=== PATIENT | female | born 1990 | race Caucasian/White ===

== ENCOUNTER 2016-07-15 16:53 | Emergency (ER) | payer MEDICAID ==
[2016-07-15 17:11] VITALS: BP 118/84
--- NOTE | 2016-07-15 17:46 | EDM.PDOC ---
ED HPI GENERAL MEDICAL PROBLEM - General Chief Complaint: ENT Problem Stated Complaint: RESPIRATORY ISSUES/LOSS OF VOICE Time Seen by Provider: 07/15/16 17:30 Source of Information: Reports: Patient History Limitations: Reports: No Limitations - History of Present Illness INITIAL COMMENTS - FREE TEXT/NARRATIVE: Patient is a 26-year-old female who presents to the emergency department complaining of mild sore throat, loss of her voice, cough/nonproductive, and intermittent chest tightness with coughing. States her throat is mildly sore when she coughs excessively. States the cough is changed from a productive to nonproductive cough for the past few days. Symptoms are persistent for the past 3 weeks with waxing and waning with intensity and mild improvement noted. States lost her voice 2 days ago. Patient started taking Augmentin prescription from old prescription completing a ten day course as of today. She was seen at the walk in clinic this past Monday with no testing obtained. She was instructed to continue taking the antibiotics as prescribed. Patient has mild shortness of breath with exertion. This has been stable with mild improvement daily. Patient continues to smoke one pack per day. She denies any fever/chills , chest pain, nausea/vomiting, ear pain, teeth pain, sinus discomfort, or any additional complaints. Duration: Chronic, Waxing/Waning Severity: Mild Improves with: Reports: Medication (OTC cough medication) Worsens with: Reports: Other (coughing) Context: Reports: Sick Contact (unknown) Associated Symptoms: Reports: Cough, Shortness of Breath (mild). Denies: cough w sputum, Fever/Chills Treatments CARDIOVASCULAR DISEASE SPECIALIST: Reports: Other (see below) Other Treatments CARDIOVASCULAR DISEASE SPECIALIST: OTC cough syrup Throat Pain Score (Numeric/FACES): 6 - Related Data Allergies Allergy/AdvReac Type Severity Reaction Status Date / Time No Known Allergies Allergy Verified 07/15/16 17:06 Home Meds: Home Meds Albuterol [Ventolin HFA] 8 gm INH Q4H PRN #1 inhaler 07/15/16 [Rx] Prednisone [IMW: predniSONE] 40 mg PO WITHBREAKFAST #10 tab 07/15/16 [Rx] Past Medical History - Past Health History Medical/Surgical History: Denies Medical/Surgical History - Past Surgical History HEENT Surgical History: Reports: Oral Surgery Social & Family History - Tobacco Use Smoking Status *Q: Current Every Day Smoker Years of Tobacco use: 9 Packs/Tins Daily: 1 - Caffeine Use Caffeine Use: Reports: Coffee - Recreational Drug Use Recreational Drug Use: No - Living Situation & Occupation Living situation: Reports: Single, with Family Occupation: Unemployed ED ROS ENT - Review of Systems Review Of Systems: See Below Constitutional: Denies: Fever, Chills, Malaise, Weakness, Decreased Appetite HEENT: Reports: Rhinitis, Other (mild sore throat, lost her voice). Denies: Dental Pain, Ear Pain, Sinus Problem Respiratory: Reports: Shortness of Breath (mild), Cough (nonproductive,improving ). Denies: Sputum Cardiovascular: Reports: No Symptoms GI/Abdominal: Denies: Abdominal Pain, Nausea, Vomiting Musculoskeletal: Denies: Muscle Pain Skin: Reports: No Symptoms Neurological: Reports: No Symptoms ED EXAM, ENT - Physical Exam Exam: See Below Exam Limited By: No Limitations General Appearance: Alert, WD/WN, No Apparent Distress Eye Exam: Bilateral Eye: EOMI Ears: Normal External Exam, Normal Canal, Hearing Grossly Normal, Normal TMs Nose: Normal Inspection, Normal Mucousa, No Blood Mouth/Throat: Normal Inspection, Normal Gums, Normal Lips, Normal Oropharynx, Normal Teeth Head: Atraumatic, Normocephalic Neck: Normal Inspection, Supple, Non-Tender, Full Range of Motion. No: Lymphadenopathy (L), Lymphadenopathy (R) Respiratory/Chest: No Respiratory Distress, Lungs Clear, Normal Breath Sounds, No Accessory Muscle Use, Chest Non-Tender Cardiovascular: Normal Peripheral Pulses, Regular Rate, Rhythm, No Murmur Neurological: Alert, Oriented, CN II-XII Intact, Normal Cognition Psychiatric: Normal Affect, Normal Mood Skin: Warm, Dry, Intact, Normal Color, No Rash Course - Vital Signs Last Recorded V/S: Last Vital Signs Temp 96.8 F 07/15/16 17:07 Pulse 103 H 07/15/16 17:07 Resp BP 118/84 07/15/16 17:07 Pulse Ox 100 07/15/16 17:07 - Re-Assessments/Exams Free Text/Narrative Re-Assessment/Exam: 07/15/16 17:46 Symptoms are most likely viral since it did not improve with taking the Augmentin. Patient is a chronic smoker one pack per day. This does not help with improving her current symptoms. Patient states symptoms are mildly improving daily. Will discharge patient home with a prescription for prednisone, and albuterol inhaler. Discharge instructions as documented. Departure - Departure Time of Disposition: 17:49 Disposition: Home, Self-Care 01 Condition: good Clinical Impression: Upper respiratory infection, viral - Discharge Information Prescriptions: Albuterol [Ventolin HFA] 8 gm INH Q4H PRN #1 inhaler PRN Reason: Shortness Of Breath Prednisone [IMW: predniSONE] 40 mg PO WITHBREAKFAST #10 tab Instructions: Upper Respiratory Infection, Adult, [id number] Referrals: PCP,Not In Area [Primary Care Provider] - Forms: ED Department Discharge Additional Instructions: Take the prednisone and albuterol as prescribed. Utilize flonase 1 spray each nare every a.m. until symptoms resolve. See PCP in the next week if symptoms persist. Ensure adequate rest and push the fluids. STOP SMOKING. Return to the E.D. for any new or worsening symptoms.
== END 2016-07-15 18:00 | disposition home or self-care (01) ==
LOC: JD.ED 16:53
DX: J06.9 Acute upper respiratory infection, unspecified (principal); F17.210 Nicotine dependence, cigarettes, uncomplicated
CPT/HCPCS: 99283

== ENCOUNTER 2018-11-14 09:30 | Emergency (ER) | payer MEDICAID ==
--- NOTE | 2018-11-14 10:06 | EDM.PDOC ---
<Mahin Summers - Last Filed: 11/14/18 10:00> ED HPI GENERAL MEDICAL PROBLEM - General Chief Complaint: Chest Pain Stated Complaint: CHEST PAIN Time Seen by Provider: 11/14/18 10:00 Source of Information: Reports: Patient History Limitations: Reports: No Limitations - History of Present Illness INITIAL COMMENTS - FREE TEXT/NARRATIVE: Pt presents to ED today with complaint of chest pain. Pt states that two nights ago around 1900 she had an episode of chest pain. Pt states that she was cooking dinner [place] she suddenly felt very hot and diaphoretic. Pt went outside to cool off and then had 4 episodes of a 'squeezing' sensation in the center of her chest. Pt states this sensation took her breath away. Pt states it was very intense and anxiety provoking. Her chief complaint today states that her chest feels diffusely sore. She is not having active chest pain or shortness of breath. Pt notes she is experiencing a headache behind her left eye which she attributes to sinus congestion. Pt denies any other systemic or associated symptoms at this time. Pt has history of hypertension, but is unsure of the name of her medication. Pt is an active smoker. Onset: Sudden Duration: Minutes: Location: Reports: Chest Quality: Reports: Other (Squeezing) Severity: Severe Improves with: Reports: Rest Worsens with: Reports: None Associated Symptoms: Reports: Diaphoresis, Headaches Chest Pain Score (Numeric/FACES): 2 - Related Data Allergies Allergy/AdvReac Type Severity Reaction Status Date / Time No Known Allergies Allergy Verified 11/14/18 09:43 Home Meds: Home Meds Atenolol 25 mg PO DAILY 11/14/18 [History] Past Medical History - Past Health History Medical/Surgical History: Denies Medical/Surgical History - Past Surgical History HEENT Surgical History: Reports: Oral Surgery Social & Family History - Tobacco Use Smoking Status *Q: Current Every Day Smoker Years of Tobacco use: 15 Packs/Tins Daily: 1 - Caffeine Use Caffeine Use: Reports: Coffee - Living Situation & Occupation Living situation: Reports: Single, with Family Occupation: Unemployed ED ROS GENERAL - Review of Systems Review Of Systems: ROS reveals no pertinent complaints other than HPI. ED EXAM, GENERAL - Physical Exam Exam: See Below Exam Limited By: No Limitations General Appearance: Alert, No Apparent Distress Eye Exam: Bilateral Eye: Normal Inspection Ears: Normal External Exam Nose: Normal Inspection Throat/Mouth: Normal Inspection, Normal Lips, Normal Teeth Head: Atraumatic, Normocephalic Neck: Normal Inspection Respiratory/Chest: No Respiratory Distress, Lungs Clear, Normal Breath Sounds, No Accessory Muscle Use Cardiovascular: Normal Peripheral Pulses, Regular Rate, Rhythm, No Edema, No Gallop, No JVD, No Murmur, No Rub GI/Abdominal: Normal Bowel Sounds, Soft, Non-Tender, No Organomegaly, No Distention Back Exam: Normal Inspection Extremities: Normal Inspection, Non-Tender, No Pedal Edema, Normal Capillary Refill Neurological: Alert, Oriented, CN II-XII Intact, Normal Cognition, No Motor/ Sensory Deficits Psychiatric: Normal Affect, Normal Mood Skin Exam: Warm, Dry, Intact, Normal Color Course - Vital Signs Last Recorded V/S: Last Vital Signs Temp 96.8 F 11/14/18 09:40 Pulse 70 11/14/18 11:00 Resp 19 11/14/18 11:00 BP 133/77 11/14/18 10:16 Pulse Ox 95 11/14/18 11:00 - Orders/Labs/Meds Orders: Active Orders 24 hr Category Date Time Status Cardiac Monitoring [RC] . DIRECTED Care 11/14/18 10:19 Active EKG Documentation Completion [RC] STAT Care 11/14/18 10:19 Active Chest 2V [CR] Stat Exams 11/14/18 10:19 Taken Labs: Laboratory Tests 11/14/18 11/14/18 11/14/18 Range/Units 10:29 10:29 10:29 WBC 7.76 (3.98-10.04) K/mm3 RBC 4.97 (3.98-5.22) M/mm3 Hgb 14.9 (11.2-15.7) gm/L Hct 44.8 (34.1-44.9) % MCV 90.1 (79.4-94.8) fl MCH 30.0 (25.6-32.2) pg MCHC 33.3 (32.2-35.5) g/dl RDW Std Deviation 43.8 (36.4-46.3) fL Plt Count 154 L (182-369) K/mm3 MPV 12.5 H (9.4-12.3) fl Neut % (Auto) 76.0 H (34.0-71.1) % Lymph % (Auto) 17.1 L (19.3-51.7) % [place] % (Auto) 3.6 L (4.7-12.5) % Eos % (Auto) 2.6 (0.7-5.8) Baso % (Auto) 0.4 (0.1-1.2) % Neut # (Auto) 5.90 (1.56-6.13) K/mm3 Lymph # (Auto) 1.33 (1.18-3.74) K/mm3 [place] # (Auto) 0.28 (0.24-0.36) K/mm3 Eos # (Auto) 0.20 (0.04-0.36) K/mm3 Baso # (Auto) 0.03 (0.01-0.08) K/mm3 D-Dimer, Quantitative 0.28 (0.19-0.50) mg/L Sodium 138 (136-145) mEq/L Potassium 3.9 (3.5-5.1) mEq/L Chloride 105 (98-107) mEq/L Carbon Dioxide 24 (21-32) mEq/L Anion Gap 12.9 (5-15) BUN 16 (7-18) mg/dL Creatinine 1.0 (0.55-1.02) mg/dL Est Cr Clr Drug Dosing 74.02 mL/min Estimated GFR (MDRD) > 60 (>60) mL/min BUN/Creatinine Ratio 16.0 (14-18) Glucose 96 (74-106) mg/dL Calcium 9.4 (8.5-10.1) mg/dL Total Bilirubin 0.5 (0.2-1.0) mg/dL AST 19 (15-37) U/L ALT 30 (14-59) U/L Alkaline Phosphatase 60 (46-116) U/L Troponin I < 0.017 (0.00-0.056) ng/mL Total Protein 7.7 (6.4-8.2) g/dl Albumin 4.1 (3.4-5.0) g/dl Globulin 3.6 gm/dL Albumin/Globulin Ratio 1.1 (1-2) - Re-Assessments/Exams Free Text/Narrative Re-Assessment/Exam: 11/14/18 10:16 Will order labs, D-Dimer, CXR Departure - Departure Disposition: Home, Self-Care 01 Clinical Impression: Pleurisy Referrals: Lidia Multani PA-C [Primary Care Provider] - 1 Week Forms: ED Department Discharge Additional Instructions: Take motrin or aleve for the pain. Try to stop smoking. Follow up with your doctor within a week. Please return if you are worse. - My Orders Last 24 Hours: My Active Orders 11/14/18 10:19 Cardiac Monitoring [RC] . DIRECTED EKG Documentation Completion [RC] STAT Chest 2V [CR] Stat - Assessment/Plan Last 24 Hours: My Active Orders 11/14/18 10:19 Cardiac Monitoring [RC] . DIRECTED EKG Documentation Completion [RC] STAT Chest 2V [CR] Stat <David Beal - Last Filed: 11/14/18 11:34> EKG INTERPRETATION EKG Date: 11/14/18 Time: 09:36 Rhythm: NSR Rate (Beats/Min): 90 [place]: Normal P-Wave: Present QRS: Normal ST-T: Normal QT: Normal Course - Re-Assessments/Exams Free Text/Narrative Re-Assessment/Exam: 11/14/18 11:31 I examined the patient myself and I agree with Mahin's assessment and plan. I ordered an EKG, CXR and labs. Her EKG shows a NSR with no acute changes. His CXR looks good. Her CBC and CMP look good. Her troponin is negative. Her D- dimer was negative. I feel this is some pleurisy. I will have her take an antiinflammatory and try to stop smoking. Departure - Departure Time of Disposition: 11:35 Condition: Good
[2018-11-14 11:16] VITALS: BP 133/77; PULSE 70
== END 2018-11-14 11:42 | disposition home or self-care (01) ==
LOC: JD.ED 09:30
DX: R09.1 Pleurisy (principal); F17.210 Nicotine dependence, cigarettes, uncomplicated; Z98.890 Other specified postprocedural states
CPT/HCPCS: 36415; 71046; 80053; 84484; 85025; 85379; 93005; 93010; 99283; 99285-25

== ENCOUNTER 2018-11-22 20:27 | Emergency (ER) | payer MEDICAID ==
[2018-11-22 20:42] VITALS: BP 138/84; PULSE 95
[2018-11-22] MEDS ORDERED: LORazepam 1 MG Tab PO ONE (22:44)
--- NOTE | 2018-11-22 22:44 | EDM.PDOC ---
ED HPI GENERAL MEDICAL PROBLEM - General Chief Complaint: General Stated Complaint: [facility] Time Seen by Provider: 11/22/18 22:21 Source of Information: Reports: Patient, Old Records (ED visit 11/14/2018) History Limitations: Reports: No Limitations - History of Present Illness INITIAL COMMENTS - FREE TEXT/NARRATIVE: Medical records indicate that the patient was seen in this ED on 11/14/2018 for 2 days of on and off chest pain. Workup included a CBC, CMP, troponin, D-dimer, chest x-ray, and ECG, all of which were unremarkable. The patient now returns to the ED stating that she has had chest and bilateral arm numbness, along with crampy abdominal pain and dyspnea, since around 19:45 this evening. She states that she has a cold. She also reports that she has had a left upper extremity achiness for the past 2 weeks, but has not sought medical evaluation for. She has had nausea on and off for the past 2 weeks, and watery diarrhea for the past 7 days. No recent fever, vomiting, constipation, or urinary symptoms. Here in the ED, the patient is hemodynamically stable, however, her oxygen saturation is noted to be 100% on room air. She appears to be extremely anxious. The patient acknowledges that she has a history of both anxiety and depression, but that her anxiety has been untreated for the past 2-3 years, and her depression untreated for the past 6 months. The patient states that she was found to have "tachycardia" on a Holter monitor from April of this year. The patient's PCP is SUSHANT Craven. The patient has an appointment to see Ms. Multani this coming Monday or . - Related Data Allergies Allergy/AdvReac Type Severity Reaction Status Date / Time No Known Allergies Allergy Verified 11/14/18 09:43 Home Meds: Home Meds Atenolol 25 mg PO DAILY 11/14/18 [History] Albuterol [Proventil HFA] 6.7 gm INH DAILY PRN 11/22/18 [History] Ibuprofen 800 mg PO DAILY 11/22/18 [History] Past Medical History [employer] History: Reports: Psychiatric History: Reports: Anxiety (untreated), Depression (untreated) Endocrine/Metabolic History: Reports: Obesity/BMI 30+ - Past Surgical History HEENT Surgical History: Reports: Oral Surgery (wisdom teeth extraction) Social & Family History - Tobacco Use Smoking Status *Q: Current Every Day Smoker Years of Tobacco use: 13 Packs/Tins Daily: 1.5 Packs/Tins Daily Comment: Down from 2 ppd - Caffeine Use Caffeine Use: Reports: Coffee - Alcohol Use Alcohol Use History: Yes Alcohol Use Frequency: Socially (rarely to excess) - Recreational Drug Use Recreational Drug Use: Yes Drug Use in Last 12 Months: No Recreational Drug Type: Reports: Cocaine (snorted once when 16 years old), Marijuana/Hashish (last smoked in 2016), Methamphetamine (last smoked when 18 years old), Psilocybin (Mushrooms) (last ate when 19 years old) - Living Situation & Occupation Living situation: Reports: Single, with Family (Parents, 2 kids) Occupation: Unemployed ED ROS GENERAL - Review of Systems Review Of Systems: ROS reveals no pertinent complaints other than HPI. ED EXAM, GENERAL - Physical Exam Exam: See Below Exam Limited By: No Limitations General Appearance: Alert, WD/WN, Anxious Eye Exam: Bilateral Eye: EOMI, Normal Inspection Ears: Normal External Exam, Hearing Grossly Normal Nose: Normal Inspection Throat/Mouth: Normal Inspection, Normal Lips, Normal Voice, No Airway Compromise Head: Atraumatic, Normocephalic Neck: Normal Inspection, Full Range of Motion Respiratory/Chest: No Respiratory Distress, Lungs Clear, Normal Breath Sounds, No Accessory Muscle Use Cardiovascular: Normal Peripheral Pulses, Regular Rate, Rhythm, No Gallop, No JVD, No Murmur, No Rub Peripheral Pulses: 4+: Radial (L), Radial (R) GI/Abdominal: Normal Bowel Sounds, Soft, Non-Tender, No Organomegaly, No Distention, No Abnormal Bruit, No Mass (Female) Exam: Deferred Rectal (Female) Exam: Deferred Back Exam: Normal Inspection, Full Range of Motion, NT Extremities: Normal Inspection, Normal Range of Motion, No Pedal Edema, Normal Capillary Refill Neurological: Alert, Oriented, Normal Cognition, No Motor/Sensory Deficits Psychiatric: Anxious Skin Exam: Warm, Dry, Intact, Normal Color, No Rash EKG INTERPRETATION EKG Date: 11/22/18 Time: 22:59 Rhythm: NSR Rate (Beats/Min): 87 [place]: Normal P-Wave: Enlarged (LAE) QRS: Normal ST-T: Normal QT: Normal Comparison: No Change (11/14/2018) Course - Vital Signs Last Recorded V/S: Last Vital Signs Temp 36.8 C 11/22/18 20:38 Pulse 95 11/22/18 20:38 Resp 14 11/22/18 20:38 BP 138/84 11/22/18 20:38 Pulse Ox 98 11/22/18 20:38 Orthostatic Blood Pressure [ 135/84 Standing] Orthostatic Blood Pressure [ 143/70 Supine] - Orders/Labs/Meds Labs: Laboratory Tests 11/22/18 11/22/18 11/22/18 Range/Units 22:53 22:53 23:00 WBC 10.18 H (3.98-10.04) K/mm3 RBC 4.98 (3.98-5.22) M/mm3 Hgb 15.0 (11.2-15.7) gm/dl Hct 44.4 (34.1-44.9) % MCV 89.2 (79.4-94.8) fl MCH 30.1 (25.6-32.2) pg MCHC 33.8 (32.2-35.5) g/dl RDW Std Deviation 42.7 (36.4-46.3) fL Plt Count 161 L (182-369) K/mm3 MPV 12.7 H (9.4-12.3) fl Neutrophils % (Manual) 71 H (40-60) % Band Neutrophils % 0 (0-10) % Lymphocytes % (Manual) 21 (20-40) % Atypical Lymphs % 0 % Monocytes % (Manual) 2 (2-10) % Eosinophils % (Manual) 6 H (0.7-5.8) % Basophils % (Manual) 0 L (0.1-1.2) Platelet Estimate Adequate Plt Morphology Comment RBC Morph Comment Normal D-Dimer, Quantitative (0.19-0.50) mg/L Puncture Site ABG pH (7.35-7.45) ABG pCO2 (35.0-45.0) mmHg ABG pO2 (80.0-100.0) mmHg ABG HCO3 (22.0-26.0) meq/L ABG O2 Saturation (96.0-97.0) % ABG Base Excess (-2-2.0) A-a Gradient mmHg O2 Delivery Device FiO2 (21.00-100.00) % Sodium (136-145) mEq/L Potassium (3.5-5.1) mEq/L Chloride (98-107) mEq/L Carbon Dioxide (21-32) mEq/L Anion Gap (5-15) BUN (7-18) mg/dL Creatinine (0.55-1.02) mg/dL Est Cr Clr Drug Dosing mL/min Estimated GFR (MDRD) (>60) mL/min BUN/Creatinine Ratio (14-18) Glucose (74-106) mg/dL Calcium (8.5-10.1) mg/dL Magnesium (1.8-2.4) mg/dl Total Bilirubin (0.2-1.0) mg/dL AST (15-37) U/L ALT (14-59) U/L Alkaline Phosphatase (46-116) U/L Troponin I (0.00-0.056) ng/mL Total Protein (6.4-8.2) g/dl Albumin (3.4-5.0) g/dl Globulin gm/dL Albumin/Globulin Ratio (1-2) TSH 3rd Generation (0.358-3.74) uIU/mL Urine Color Yellow (Yellow) Urine Appearance Clear (Clear) Urine pH 6.5 (5.0-8.0) Ur Specific [place] 1.015 (1.005-1.030) Urine Protein Negative (Negative) Urine Glucose (UA) Negative (Negative) Urine Ketones Negative (Negative) Urine Occult Blood Negative (Negative) Urine Nitrite Negative (Negative) Urine Bilirubin Negative (Negative) Urine Urobilinogen 0.2 (0.2-1.0) Ur Leukocyte Esterase Negative (Negative) Urine RBC 0-5 (0-5) /hpf Urine WBC 0-5 (0-5) /hpf Ur Squamous Epith Cells 0-5 (0-5) /hpf Urine Bacteria Rare (FEW) /hpf Urine Mucus Not seen (FEW) /hpf Urine HCG, Qual Negative (NEGATIVE) 11/22/18 11/22/18 11/22/18 Range/Units 23:00 23:00 23:05 WBC (3.98-10.04) K/mm3 RBC (3.98-5.22) M/mm3 Hgb (11.2-15.7) gm/dl Hct (34.1-44.9) % MCV (79.4-94.8) fl MCH (25.6-32.2) pg MCHC (32.2-35.5) g/dl RDW Std Deviation (36.4-46.3) fL Plt Count (182-369) K/mm3 MPV (9.4-12.3) fl Neutrophils % (Manual) (40-60) % Band Neutrophils % (0-10) % Lymphocytes % (Manual) (20-40) % Atypical Lymphs % % Monocytes % (Manual) (2-10) % Eosinophils % (Manual) (0.7-5.8) % Basophils % (Manual) (0.1-1.2) Platelet Estimate Plt Morphology Comment RBC Morph Comment D-Dimer, Quantitative 0.32 (0.19-0.50) mg/L Puncture Site Rt radial ABG pH 7.39 (7.35-7.45) ABG pCO2 35.9 (35.0-45.0) mmHg ABG pO2 75.0 L (80.0-100.0) mmHg ABG HCO3 21.4 L (22.0-26.0) meq/L ABG O2 Saturation 96.4 (96.0-97.0) % ABG Base Excess -2.4 L (-2-2.0) A-a Gradient 30 mmHg O2 Delivery Device Room air FiO2 21.00 (21.00-100.00) % Sodium 140 (136-145) mEq/L Potassium 3.4 L (3.5-5.1) mEq/L Chloride 105 (98-107) mEq/L Carbon Dioxide 23 (21-32) mEq/L Anion Gap 15.4 H (5-15) BUN 14 (7-18) mg/dL Creatinine 0.9 (0.55-1.02) mg/dL Est Cr Clr Drug Dosing 82.25 mL/min Estimated GFR (MDRD) > 60 (>60) mL/min BUN/Creatinine Ratio 15.6 (14-18) Glucose 104 (74-106) mg/dL Calcium 9.8 (8.5-10.1) mg/dL Magnesium 2.0 (1.8-2.4) mg/dl Total Bilirubin 0.3 (0.2-1.0) mg/dL AST 15 (15-37) U/L ALT 27 (14-59) U/L Alkaline Phosphatase 68 (46-116) U/L Troponin I < 0.017 (0.00-0.056) ng/mL Total Protein 7.8 (6.4-8.2) g/dl Albumin 4.1 (3.4-5.0) g/dl Globulin 3.7 gm/dL Albumin/Globulin Ratio 1.1 (1-2) TSH 3rd Generation 3.866 H (0.358-3.74) uIU/mL Urine Color (Yellow) Urine Appearance (Clear) Urine pH (5.0-8.0) Ur Specific [place] (1.005-1.030) Urine Protein (Negative) Urine Glucose (UA) (Negative) Urine Ketones (Negative) Urine Occult Blood (Negative) Urine Nitrite (Negative) Urine Bilirubin (Negative) Urine Urobilinogen (0.2-1.0) Ur Leukocyte Esterase (Negative) Urine RBC (0-5) /hpf Urine WBC (0-5) /hpf Ur Squamous Epith Cells (0-5) /hpf Urine Bacteria (FEW) /hpf Urine Mucus (FEW) /hpf Urine HCG, Qual (NEGATIVE) Meds: Medications Discontinued Medications Generic Name Dose Route Start Last Admin Trade Name Freq PRN Reason Stop Dose Admin Lorazepam 1 mg 11/22/18 22:44 11/22/18 23:24 Ativan PO 11/22/18 22:45 1 mg ONETIME ONE Administration - Re-Assessments/Exams Free Text/Narrative Re-Assessment/Exam: 11/22/18 22:42 The patient is extremely anxious, and it is most likely that her symptoms are due to her anxiety. I suspect that the patient would have poor insight if I simply told her that her symptoms were due to anxiety - she would not understand how some other etiology had been ruled out, therefore I have ordered an anxiety panel workup. I have ordered 1 mg of oral Ativan, but only to be given after her ABG has been drawn, and only if she has a ride home. 11/22/18 23:30 The patient is not orthostatic. 2-view chest radiograph appears to be grossly normal. The cardiac silhouette is within normal limits. No pulmonary vascular congestion. No pleural effusions. No focal infiltrate. No pneumothorax. Formal read per the Radiologist pending. 11/23/18 00:24 Test results discussed with the patient. She states that since being given the Ativan, her arms are no longer tingling. Her CBC is markable for WBC count mildly elevated at 10.18, but with 0% bandemia. Her platelets are mildly depressed 161,000. The remainder of her CBC is unremarkable. Her CMP is remarkable for a potassium slightly depressed at 3.4, but is otherwise unremarkable. Her magnesium level is within normal limits at 2.0. Her troponin is undetectably low. Her D-dimer is within normal limits at 0.32. Her TSH is mildly elevated at 3.866. Her urinalysis is unremarkable. Her urine test is negative. Her ABG is unremarkable. I explained to the patient that, while there is no test for anxiety, the patient 's symptoms are almost certainly caused by anxiety. I explained that the tests that we did today are to rule out other potential causes of her symptoms, and that all returned negative. I strongly recommended that she discuss treatment options for anxiety when she follows up with her PCP this coming Monday or . Departure - Departure Time of Disposition: 00:27 Disposition: Home, Self-Care 01 Condition: Good Clinical Impression: Anxiety - Discharge Information *PRESCRIPTION DRUG MONITORING PROGRAM REVIEWED*: Not Applicable *COPY OF PRESCRIPTION DRUG MONITORING REPORT IN PATIENT CHIDI: Not Applicable Instructions: Living With Anxiety Referrals: Lidia Multani PA-C [Primary Care Provider] - Forms: ED Department Discharge Additional Instructions: You were seen in the emergency room for left upper extremity achiness for the past 2 weeks, along with numbness to both your arms and your abdomen, and shortness of breath. Workup in the ER included blood work, an arterial blood gas, positional blood pressure checks, a urinalysis, a urine test, a chest x-ray, and an ECG. Your TSH was found to be slightly elevated at 3.866, indicating that you MAY be a little hypothyroid. Your TSH should be rechecked when you're feeling better. The remainder of your workup was unremarkable. You do not have pneumonia or a collapsed lung. You are not dehydrated. You are not anemic. No significant electrolyte abnormalities were found. You have not had a heart attack. You do not have a blood clot in your lungs. You do not have a urinary tract infection, and you are not . Based on your history, physical exam, and ER tests, the cause of your symptoms is most likely do to anxiety. Anxiety is also likely the cause of your tachycardia. We strongly recommend that you follow-up with your PCP, SUSHANT Craven, at your previously scheduled appointment this coming 11/27/2018, or , 11/29/2018, to discuss treatment options for anxiety. If any other problems, please do not hesitate to return to the ER.
--- NOTE | 2018-11-26 07:10 | CR ---
Chest: Two views of the chest were obtained. Comparison: Previous chest x-ray of 11/14/18. Heart size and mediastinum are normal. Lungs are clear. Bony structures appear within normal limits for the patient's age. Impression: 1. Nothing acute is appreciated on two-view chest x-ray. Diagnostic code #1
== END 2018-11-23 00:38 | disposition home or self-care (01) ==
LOC: JD.ED 20:27
DX: F41.9 Anxiety disorder, unspecified (principal); E66.9 Obesity, unspecified; F17.210 Nicotine dependence, cigarettes, uncomplicated; Z68.34 Body mass index [BMI] 34.0-34.9, adult; Z79.899 Other long term (current) drug therapy
CPT/HCPCS: 36415; 36600; 71046; 80053; 81001; 81025; 82803; 83735; 84443; 84484; 85007; 85027; 85379; 93005; 99285; A9270

== ENCOUNTER 2018-11-27 02:14 | Emergency (ER) | payer MEDICAID ==
[2018-11-27 02:18] VITALS: BP 131/88; PULSE 78
--- NOTE | 2018-11-27 03:22 | EDM.PDOC ---
ED HPI GENERAL MEDICAL PROBLEM - General Chief Complaint: General Stated Complaint: [facility] Time Seen by Provider: 11/27/18 02:25 Source of Information: Reports: Patient, RN Notes Reviewed History Limitations: Reports: No Limitations - History of Present Illness INITIAL COMMENTS - FREE TEXT/NARRATIVE: Ms. Summers is a very pleasant 28-year-old woman who states that she woke from sleep with bilateral hand tingling and numbness, worse on the right than the left. She soon developed a burning sensation felt all over her body, that initially began on her feet, then progressively moved upwards. She developed shortness of breath and chest pain, along with some tightness in her throat, like she couldn't swallow. All those symptoms resolved after about 1 hour. She was also experiencing palpitations, which she felt was likely due to anxiety, but she did not feel like the other symptoms were due to her usual anxiety. The patient has a history of both anxiety and depression, but stopped taking clonazepam, that she had been on for 6-12 months, 2-3 years ago and she stopped taking sertraline about 6 months ago. She was seen in this ED on 11/14/2018, and 11/22/2018 with symptoms anxiety, and workups were negative. She states that she was then seen at the walk-in clinic on 11/23/2018, and prescribed 10 tablets of Xanax 0.25 mg, as well as sertraline 25 mg per day. She states that she was also prescribed amoxicillin for an ear infection, because her provider said that her ears looked red. The patient's PCP is SUSHANT Craven. She has an appointment to see Ms. Multani this 11/28/2018. - Related Data Allergies Allergy/AdvReac Type Severity Reaction Status Date / Time No Known Allergies Allergy Verified 11/27/18 02:18 Home Meds: Home Meds Atenolol 25 mg PO DAILY 11/14/18 [History] Albuterol [Proventil HFA] 6.7 gm INH DAILY PRN 11/22/18 [History] Ibuprofen 800 mg PO DAILY 11/22/18 [History] ALPRAZolam [Xanax] 0.25 mg PO TID 11/27/18 [History] Amoxicillin 0 mg PO BID 11/27/18 [History] Past Medical History [employer] History: Reports: Psychiatric History: Reports: Anxiety, Depression Endocrine/Metabolic History: Reports: Obesity/BMI 30+ - Past Surgical History HEENT Surgical History: Reports: Oral Surgery (wisdom teeth extraction) Social & Family History - Tobacco Use Smoking Status *Q: Current Every Day Smoker Years of Tobacco use: 13 Packs/Tins Daily: 1.5 Packs/Tins Daily Comment: Down from 2 ppd - Caffeine Use Caffeine Use: Reports: Coffee - Alcohol Use Alcohol Use History: Yes Alcohol Use Frequency: Socially (rarely to excesss) - Recreational Drug Use Recreational Drug Use: Yes Drug Use in Last 12 Months: No Recreational Drug Type: Reports: Cocaine (snorted once when 16 years old), Marijuana/Hashish (last smoked 2016), Methamphetamine (last smoked when 18 years old), Psilocybin (Mushrooms) (last ate when 19 years old) - Living Situation & Occupation Living situation: Reports: Single, with Family (Parents, 2 kids) Occupation: Unemployed ED ROS GENERAL - Review of Systems Review Of Systems: ROS reveals no pertinent complaints other than HPI. ED EXAM, GENERAL - Physical Exam Exam: See Below Exam Limited By: No Limitations General Appearance: Alert, WD/WN, Anxious (tearful) Eye Exam: Bilateral Eye: EOMI, Normal Inspection Ears: Normal External Exam, Hearing Grossly Normal Nose: Normal Inspection Throat/Mouth: Normal Inspection, Normal Lips, Normal Voice, No Airway Compromise Head: Atraumatic, Normocephalic Neck: Normal Inspection, Full Range of Motion Respiratory/Chest: No Respiratory Distress, Lungs Clear, Normal Breath Sounds, No Accessory Muscle Use Cardiovascular: Normal Peripheral Pulses, Regular Rate, Rhythm, No Gallop, No JVD, No Murmur, No Rub Peripheral Pulses: 4+: Radial (L), Radial (R) GI/Abdominal: Normal Bowel Sounds, Soft, Non-Tender, No Organomegaly, No Distention, No Abnormal Bruit, No Mass (Female) Exam: Deferred Rectal (Female) Exam: Deferred Back Exam: Normal Inspection, Full Range of Motion, NT Extremities: Normal Inspection, Normal Range of Motion, No Pedal Edema, Normal Capillary Refill Neurological: Alert, Oriented, Normal Cognition, No Motor/Sensory Deficits Psychiatric: Anxious Skin Exam: Warm, Dry, Intact, Normal Color, No Rash Course - Vital Signs Last Recorded V/S: Last Vital Signs Temp 36.4 C 09/24/19 02:15 Pulse 78 11/27/18 02:15 Resp 16 11/27/18 02:15 BP 131/88 11/27/18 02:15 Pulse Ox 96 11/27/18 02:15 - Re-Assessments/Exams Free Text/Narrative Re-Assessment/Exam: 11/27/18 03:17 It is very clear that the patient is suffering from panic attacks. The patient and I talked about this at great length. She was started on Xanax and sertraline on 11/23/2018. I think it is appropriate that she continue these until she sees her PCP this coming 11/28/2018, although Xanax is not a good long-term choice for the treatment of anxiety. She was also prescribed amoxicillin for an ear infection, however, on examination, I see no evidence of an ear infection, therefore I am recommending that she discontinue the amoxicillin. After talking at length, the patient states that she feels much better, having a better understanding of the cause of her symptoms when she is having a panic attack. She declined an offer to have tests done in the ED, and is comfortable going home. Lastly, the patient reports at least a year of waking with her hands tingling and numb, worse on the right than the left. She may have carpal tunnel syndrome. I suggested that she also discuss this with her PCP when she sees her on Monday. Departure - Departure Time of Disposition: 03:21 Disposition: Home, Self-Care 01 Condition: Good Clinical Impression: Panic attack - Discharge Information *PRESCRIPTION DRUG MONITORING PROGRAM REVIEWED*: Not Applicable *COPY OF PRESCRIPTION DRUG MONITORING REPORT IN PATIENT CHIDI: Not Applicable Referrals: Lidia Multani PA-C [Ordering Only Provider] - Additional Instructions: You were seen in the emergency room after he developed the sensation of your whole body burning, chest pain or shortness of breath, headache, and palpitations. Based on your history and physical examination, you were most likely suffering from a panic attack. ER tests were offered, but declined. We recommend that you continue with Xanax on an as-needed basis for anxiety, and sertraline on a daily basis. We recommend that you discontinue the amoxicillin, as we saw no evidence that you have an ear infection. We recommend that you throw the unused pills into the trash - do not flush them down the toilet or wash them down the drain. The tingling and numbness of your hands may be due to carpal tunnel syndrome. Follow-up with your PCP, SUSHANT Craven, at your previously scheduled appointment this coming 11/28/2018, to discuss long-term treatment options for anxiety, as well as evaluation for carpal tunnel syndrome. If any other problems, please do not hesitate to return to the ER.
== END 2018-11-27 03:34 | disposition home or self-care (01) ==
LOC: JD.ED 02:14
DX: F41.0 Panic disorder [episodic paroxysmal anxiety] (principal); F32.9 Major depressive disorder, single episode, unspecified; E66.9 Obesity, unspecified; F17.210 Nicotine dependence, cigarettes, uncomplicated; Z79.899 Other long term (current) drug therapy; Z68.34 Body mass index [BMI] 34.0-34.9, adult
CPT/HCPCS: 99283

== ENCOUNTER 2018-11-27 18:13 | Emergency (ER) | payer MEDICAID ==
[2018-11-27 18:25] VITALS: BP 143/87; PULSE 102
--- NOTE | 2018-11-27 20:15 | EDM.PDOCBH ---
ED HPI GENERAL MEDICAL PROBLEM - General Chief Complaint: Behavioral/Psych Stated Complaint: MEDICATION REACTION Time Seen by Provider: 11/27/18 19:07 Source of Information: Reports: Patient History Limitations: Reports: No Limitations - History of Present Illness INITIAL COMMENTS - FREE TEXT/NARRATIVE: Ms. Summers is a very pleasant 28-year-old woman who has been seen by me in this ED on several occasions recently due to symptoms of anxiety. She was recently started on alprazolam and sertraline, but it may be a few weeks before the sertraline becomes effective. The patient now returns to the ED because she has been taking gabapentin, 900- 1800 mg QHS, on off for the past few months, for treatment of her restless leg syndrome, which she states has helped, however, the gabapentin was provided to her by a friend. The patient does not have a prescription for it. Her last dose was this past Monday or . She is concerned that the gabapentin may have caused some permanent physical brain damage. The patient saw her PCP this morning, and was prescribed additional alprazolam, and there is a plan to sequentially increase the dose of her sertraline, however , the patient did not discuss her gabapentin use with her PCP. The patient's PCP is SUSHANT Cunningham. She has an appointment to follow-up with Ms. Multani on 12/27/2018. 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: Psychiatric History: Reports: Anxiety, Depression Endocrine/Metabolic History: Reports: Obesity/BMI 30+ - Past Surgical History HEENT Surgical History: Reports: Oral Surgery (wisdom teeth extraction) Social & Family History - Tobacco Use Smoking Status *Q: Current Every Day Smoker Years of Tobacco use: 13 Packs/Tins Daily: 1.5 Packs/Tins Daily Comment: Down from 2 ppd - Caffeine Use Caffeine Use: Reports: None - Alcohol Use Alcohol Use History: Yes Alcohol Use Frequency: Socially (rarely to excess) - Recreational Drug Use Recreational Drug Use: Yes Drug Use in Last 12 Months: No Recreational Drug Type: Reports: Cocaine (snorted once when 16 years old), Marijuana/Hashish (last smoked 2015), Methamphetamine (last smoked when 18 years old), Psilocybin (Mushrooms) (last ate when 19 years old) - Living Situation & Occupation Living situation: Reports: Single, with Family (Parents, 2 kids) Occupation: Unemployed ED ROS GENERAL - Review of Systems Review Of Systems: ROS reveals no pertinent complaints other than HPI. ED EXAM, BEHAVIORAL HEALTH - Physical Exam Exam: See Below Exam Limited By: No Limitations General Appearance: Alert, WD/WN, Anxious Eye Exam: Bilateral Eye: EOMI, Normal Inspection Ears: Normal External Exam, Hearing Grossly Normal Nose: Normal Inspection Throat/Mouth: Normal Inspection, Normal Lips, Normal Voice, No Airway Compromise Head: Atraumatic, Normocephalic Neck: Normal Inspection, Full Range of Motion Respiratory/Chest: No Respiratory Distress, Lungs Clear, Normal Breath Sounds, No Accessory Muscle Use Cardiovascular: Normal Peripheral Pulses, Regular Rate, Rhythm, No Edema, No Gallop, No JVD, No Murmur, No Rub GI/Abdominal: Normal Bowel Sounds, Soft, Non-Tender, No Organomegaly, No Distention, No Abnormal Bruit, No Mass (Female) Exam: Deferred Rectal (Female) Exam: Deferred Back Exam: Normal Inspection, Full Range of Motion, NT Extremities: Normal Inspection, Normal Range of Motion, No Pedal Edema, Normal Capillary Refill Neurological: Alert, No Motor/Sensory Deficits, Oriented x 3 Psychiatric: Other (Anxious, although improved from earlier ED visits) Skin Exam: Warm, Dry, Intact, Normal color, No rash COURSE, BEHAVIORAL HEALTH COMP - Course Vital Signs: Last Vital Signs Temp 36.7 C 11/27/18 18:19 Pulse 102 H 11/27/18 18:19 Resp 14 11/27/18 18:19 BP 143/87 H 11/27/18 18:19 Pulse Ox 99 11/27/18 18:19 Medical Clearance: 11/27/18 20:04 As per the HPI, the patient is concerned that the gabapentin that she has been taking for the past few months may have caused some sort of physical brain damage. I reassured her that it has not, however, withdraw of gabapentin may be heightening her anxiety. At this time, I am recommending that she continue with the daily sertraline and as-needed Xanax. Gabapentin, or some other neuroleptic , may play a role in the future to treat her restless leg syndrome, but it is probably murdock if we treat just one problem at a time, therefore am not recommending that we start her on a neuroleptic on a regular basis at this time , however, it is something that she can discuss with Ms. Multani when she follows up in one month. Departure - Departure Time of Disposition: 20:15 Disposition: Home, Self-Care 01 Condition: Good Clinical Impression: Anxiety disorder - Discharge Information *PRESCRIPTION DRUG MONITORING PROGRAM REVIEWED*: Not Applicable *COPY OF PRESCRIPTION DRUG MONITORING REPORT IN PATIENT CHIDI: Not Applicable Instructions: Living With Anxiety Referrals: Lidia Multani PA-C [Primary Care Provider] - Forms: ED Department Discharge Additional Instructions: You were seen in the emergency room over a concern that gabapentin that you have taken over the past few months they have caused some brain damage. As discussed, while withdrawal of gabapentin may be contributing to your anxiety , it has not caused any brain damage. We recommend that you continue to take the sertraline on a daily basis, as prescribed, and Xanax up to 3 times a day, as needed for anxiety, as prescribed. We are not recommending that you start a medicine for her restless leg syndrome at this time, however, it is something that you should talk to Ms. Multani about when you follow-up with her on 12/27/2018. If any other problems, please do not hesitate to return to the ER.
== END 2018-11-27 20:35 | disposition home or self-care (01) ==
LOC: JD.ED 18:13
DX: F41.9 Anxiety disorder, unspecified (principal); F32.9 Major depressive disorder, single episode, unspecified; E66.9 Obesity, unspecified; F17.210 Nicotine dependence, cigarettes, uncomplicated; Z79.899 Other long term (current) drug therapy; Z68.34 Body mass index [BMI] 34.0-34.9, adult
CPT/HCPCS: 99283

== ENCOUNTER 2019-05-08 16:01 | Emergency (ER) | payer MEDICAID ==
[2019-05-08 16:10] VITALS: BP 145/80; PULSE 98
--- NOTE | 2019-05-08 16:35 | EDM.PDOC ---
ED HPI GENERAL MEDICAL PROBLEM - General Chief Complaint: Chest Pain Stated Complaint: CHEST PAIN Time Seen by Provider: 05/08/19 16:12 Source of Information: Reports: Patient, RN Notes Reviewed History Limitations: Reports: No Limitations - History of Present Illness INITIAL COMMENTS - FREE TEXT/NARRATIVE: Patient is a 29-year-old female who presents to the ED for evaluation of left- sided chest pain. Patient notes that she has been having chest pain on and off for around 6 months, and is usually diagnosed with anxiety, when the chest pain starts. She does note that she has a history of anxiety, and is very anxious at today's visit again. The patient states that for the past month however she has been sick with chills, congestion, and a cough. She denies any other cardiac issues or lung issues that she has. States that the pain does start in her left chest, around the third or fourth rib, radiates to her back, and also down her left arm at times. Notes it is sharp and stabbing, and intermittent in nature. Patient has not had her other symptoms evaluated, she did go to the walk-in clinic today for evaluation of her symptoms but was sent here due to the chest pain. Patient is not sure if she can be or not, states she does have an IUD but has been having unprotected sex. Patient notes that she does get some brown junk up with a cough, but is also a 1 pack-a-day smoker for multiple years. Left Chest Pain Score (Numeric/FACES): 3 - Related Data Allergies Allergy/AdvReac Type Severity Reaction Status Date / Time No Known Allergies Allergy Verified 05/08/19 16:10 Home Meds: Home Meds atenoloL [Atenolol] 25 mg PO DAILY 11/14/18 [History] Albuterol [Proventil HFA] 6.7 gm INH DAILY PRN 11/22/18 [History] Ibuprofen 800 mg PO DAILY PRN 11/22/18 [History] LORazepam [Ativan] 0.5 mg PO TID 05/08/19 [History] Past Medical History Cardiovascular History: Reports: Hypertension, Other (See Below) Other Cardiovascular History: Pt reports she has palpitations Respiratory History: Reports: Asthma 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: , 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 (See Below) Other PETROLEUM ANALYST History: IUD Neurological History: Reports: Headaches, Chronic Psychiatric History: Reports: Anxiety, Depression Endocrine/Metabolic History: Reports: Obesity/BMI 30+ Dermatologic History: Reports: Eczema, Psoriasis - Infectious Disease History Infectious Disease History: Reports: Chicken Pox - Past Surgical History HEENT Surgical History: Reports: Oral Surgery Social & Family History - Tobacco Use Smoking Status *Q: Current Every Day Smoker Years of Tobacco use: 15 Packs/Tins Daily: 1 - Caffeine Use Caffeine Use: Reports: Coffee, Soda, Tea - Recreational Drug Use Recreational Drug Use: Yes Drug Use in Last 12 Months: Yes Recreational Drug Type: Reports: Marijuana/Hashish Recreational Drug Use Frequency: Rarely - Living Situation & Occupation Living situation: Reports: Single, with Family (Parents, 2 kids) Occupation: Unemployed ED ROS GENERAL - Review of Systems Review Of Systems: See Below Constitutional: Reports: Chills, Malaise, Decreased Appetite Respiratory: Reports: Cough, Sputum. Denies: Shortness of Breath Cardiovascular: Reports: Chest Pain (L sided CP with radiation to L arm and back ). Denies: Edema, Lightheadedness GI/Abdominal: Denies: Abdominal Pain, Nausea, Vomiting Musculoskeletal: Reports: Arm Pain Psychiatric: Reports: Anxiety ED EXAM, GENERAL - Physical Exam Exam: See Below Exam Limited By: No Limitations General Appearance: Alert, WD/WN, No Apparent Distress, Anxious Eye Exam: Bilateral Eye: EOMI, Normal Inspection, PERRL Ears: Normal External Exam Nose: Normal Inspection Throat/Mouth: Normal Inspection, Normal Lips, Normal Teeth, Normal Gums, Normal Oropharynx, Normal Voice, No Airway Compromise Head: Atraumatic, Normocephalic Neck: Normal Inspection Respiratory/Chest: No Respiratory Distress, Lungs Clear, Normal Breath Sounds, No Accessory Muscle Use, Other (Left chest tender around the 3-4th rib distribution, this does re-create her pain.) Cardiovascular: Normal Peripheral Pulses, Regular Rate, Rhythm, No Edema, No Murmur Peripheral Pulses: 3+: Radial (L), Radial (R) GI/Abdominal: Normal Bowel Sounds, Soft, Non-Tender, No Distention, No Mass Extremities: Normal Inspection, Normal Capillary Refill Neurological: Alert, Oriented, Normal Cognition, No Motor/Sensory Deficits Psychiatric: Anxious (pt is tearful and scared that she has to be here d/t chest pain) Skin Exam: Warm, Dry, Intact, Normal Color, No Rash Course - Vital Signs Last Recorded V/S: Last Vital Signs Temp 97.0 F 05/08/19 16:07 Pulse 98 05/08/19 16:07 Resp 19 05/08/19 16:07 BP 145/80 H 05/08/19 16:07 Pulse Ox 99 05/08/19 16:07 - Orders/Labs/Meds Orders: Active Orders 24 hr Category Date Time Status Chest 2V [CR] Stat Exams 05/08/19 16:35 Ordered Labs: Laboratory Tests 05/08/19 05/08/19 05/08/19 Range/Units 16:45 16:45 16:45 WBC 6.88 (3.98-10.04) K/mm3 RBC 5.04 (3.98-5.22) M/mm3 Hgb 15.3 (11.2-15.7) gm/dl Hct 45.4 H (34.1-44.9) % MCV 90.1 (79.4-94.8) fl MCH 30.4 (25.6-32.2) pg MCHC 33.7 (32.2-35.5) g/dl RDW Std Deviation 42.8 (36.4-46.3) fL Plt Count 139 L (182-369) K/mm3 MPV 12.4 H (9.4-12.3) fl Neut % (Auto) 63.1 (34.0-71.1) % Lymph % (Auto) 26.6 (19.3-51.7) % [place] % (Auto) 5.7 (4.7-12.5) % Eos % (Auto) 3.9 (0.7-5.8) Baso % (Auto) 0.6 (0.1-1.2) % Neut # (Auto) 4.34 (1.56-6.13) K/mm3 Lymph # (Auto) 1.83 (1.18-3.74) K/mm3 [place] # (Auto) 0.39 H (0.24-0.36) K/mm3 Eos # (Auto) 0.27 (0.04-0.36) K/mm3 Baso # (Auto) 0.04 (0.01-0.08) K/mm3 Sodium 138 (136-145) mEq/L Potassium 4.0 (3.5-5.1) mEq/L Chloride 105 (98-107) mEq/L Carbon Dioxide 24 (21-32) mEq/L Anion Gap 13.0 (5-15) BUN 13 (7-18) mg/dL Creatinine 0.9 (0.55-1.02) mg/dL Est Cr Clr Drug Dosing 81.50 mL/min Estimated GFR (MDRD) > 60 (>60) mL/min BUN/Creatinine Ratio 14.4 (14-18) Glucose 106 (74-106) mg/dL Calcium 9.1 (8.5-10.1) mg/dL Total Bilirubin 0.5 (0.2-1.0) mg/dL AST 17 (15-37) U/L ALT 33 (14-59) U/L Alkaline Phosphatase 59 (46-116) U/L Total Protein 7.7 (6.4-8.2) g/dl Albumin 4.0 (3.4-5.0) g/dl Globulin 3.7 gm/dL Albumin/Globulin Ratio 1.1 (1-2) HCG, Qual Negative (NEGATIVE) Meds: Medications Discontinued Medications Generic Name Dose Route Start Last Admin Trade Name Freq PRN Reason Stop Dose Admin Ketorolac Tromethamine 60 mg 05/08/19 16:36 05/08/19 16:44 Toradol IM 05/08/19 16:37 60 mg ONETIME ONE Administration - Re-Assessments/Exams Free Text/Narrative Re-Assessment/Exam: 05/08/19 16:53 Patient presents to the ED for evaluation of her left-sided chest pain. I do suspect that her chest pain is due to costochondritis in nature, as her chest is tender in the third or fourth rib distribution, and is reproducible on exam. Due to her cough being present for around 1 month, with other sick-like symptoms I will order chest x-ray, CBC and CMP for further evaluation, also check hCG to make sure the patient's not before we do the chest x-ray, I did suggest giving the patient an injection of Toradol to see if this does not help her pain, and she was okay with this at this time. 05/08/19 18:31 Labs have come back unremarkable. Chest x-ray is also unremarkable, no sign of any obvious consolidation, or infiltrate. Patient will be discharged home and treated for costochondritis at this time. Departure - Departure Time of Disposition: 18:41 Disposition: Home, Self-Care 01 Condition: Fair Clinical Impression: Acute costochondritis, Anxiety - Discharge Information *PRESCRIPTION DRUG MONITORING PROGRAM REVIEWED*: No *COPY OF PRESCRIPTION DRUG MONITORING REPORT IN PATIENT CHIDI: No Instructions: Costochondritis, [id number] Referrals: Lidia Multani PA-C [Primary Care Provider] - Forms: ED Department Discharge Additional Instructions: You were evaluated in the ER for your left-sided chest pain. Your symptoms are most likely costochondritis in nature, which is an inflammation of the nerves that run along the underside of your ribs, this is due to your recent viral illness you have been fighting. Treatment of this would be 600 mg ibuprofen every 6 hours for further pain relief. Do not exceed 3200mg ibuprofen in a 24 hr time span. Recommend that you start your omeprazole again, as this will help the acid reflux/heartburn issues you have been having, and also start taking your Zoloft as previously prescribed as this will also provide you benefit from your increased anxiety that you are experiencing. Recommend you follow-up with your primary care provider in about 1 week's time to make sure your symptoms are improving. Please return to the ER at any time however if your symptoms change or worsen. Sepsis Event Note - Evaluation Sepsis Screening Result: No Definite Risk - Focused Exam Vital Signs: Vital Signs Temp Pulse Resp BP Pulse Ox 05/08/19 16:07 97.0 F 98 19 145/80 H 99 Date Exam was Performed: 05/08/19 Time Exam was Performed: 18:31 - My Orders Last 24 Hours: My Active Orders 05/08/19 16:35 Chest 2V [CR] Stat - Assessment/Plan Last 24 Hours: My Active Orders 05/08/19 16:35 Chest 2V [CR] Stat
[2019-05-08] MEDS ORDERED: Ketorolac 60 MG/2 ML SDV IM ONE (16:36)
--- NOTE | 2019-05-09 07:21 | CR ---
Chest: PA and lateral views of the chest were obtained. Comparison: Prior chest x-ray of 11/22/18. Heart size and mediastinum are normal. Lungs are clear with no acute parenchymal change. Bony structures appear within normal limits for the patient's age. Impression: 1. Nothing acute is seen on two-view chest x-ray. Diagnostic code #1 This report was dictated in [place] Standard Time
== END 2019-05-08 18:55 | disposition home or self-care (01) ==
LOC: JD.ED 16:01
DX: M94.0 Chondrocostal junction syndrome [Tietze] (principal); F41.9 Anxiety disorder, unspecified; I10 Essential (primary) hypertension; F17.210 Nicotine dependence, cigarettes, uncomplicated; Z79.899 Other long term (current) drug therapy
CPT/HCPCS: 36415; 71046; 80053; 84703; 85025; 96372; 99285; J1885; 99283

== ENCOUNTER 2019-05-27 16:24 | Emergency (ER) | payer MEDICAID ==
[2019-05-27 16:33] VITALS: BP 139/85; PULSE 90
--- NOTE | 2019-05-27 17:10 | EDM.PDOC ---
ED HPI GENERAL MEDICAL PROBLEM - General Chief Complaint: Bite:Animal, Insect Stated Complaint: DOG BITE Time Seen by Provider: 05/27/19 16:41 Source of Information: Reports: Patient, RN Notes Reviewed History Limitations: Reports: No Limitations - History of Present Illness INITIAL COMMENTS - FREE TEXT/NARRATIVE: The patient is a 29-year-old female who presents to the ED for the evaluation of a dog bite on her left side of her face. Patient states that just before coming to the ER, she was bit by a dog, that she was trying to keep from crossing of a large street in [place]. Patient states that she grabbed the dog by the collar, to try to calm it down, but the dog swung back around and ended up biting the left side of her face. Patient believes that her tetanus is up-to-date. There are some small lacerations and 1 small puncture wound to the left side of the face, along the mandible, other scrapes are noted on the neck. There is no active bleeding, and the area was cleansed with Hibiclens at time of triage. The Police Department was called and made notified of the bite. Face/Facial Pain Score (Numeric/FACES): 7 - Related Data Allergies Allergy/AdvReac Type Severity Reaction Status Date / Time [place] Allergy Shortness Uncoded 05/27/19 16:33 of Breath Home Meds: Home Meds atenoloL [Atenolol] 25 mg PO DAILY 11/14/18 [History] Albuterol [Proventil HFA] 6.7 gm INH DAILY PRN 11/22/18 [History] Ibuprofen 800 mg PO DAILY PRN 11/22/18 [History] LORazepam [Ativan] 0.5 mg PO TID 05/08/19 [History] Amoxicillin/Clavulanate K [Augmentin 875-125 MG] 1 tab PO BID #14 tablet [Rx] Sertraline HCl [Zoloft] 75 mg PO DAILY 05/27/19 [History] Past Medical History Cardiovascular History: Reports: Hypertension, Other (See Below) Other Cardiovascular History: Pt reports she has palpitations. 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: IUD Neurological History: Reports: Headaches, Chronic Psychiatric History: Reports: Anxiety, Depression Endocrine/Metabolic History: Reports: Obesity/BMI 30+ Dermatologic History: Reports: Eczema, Psoriasis - Infectious Disease History Infectious Disease History: Reports: Chicken Pox - Past Surgical History HEENT Surgical History: Reports: Oral Surgery Social & Family History - Tobacco Use Smoking Status *Q: Current Every Day Smoker Years of Tobacco use: 13 Packs/Tins Daily: 1 - Caffeine Use Caffeine Use: Reports: Coffee - Recreational Drug Use Recreational Drug Use: Yes Recreational Drug Type: Reports: Marijuana/Hashish - Living Situation & Occupation Living situation: Reports: Single, with Family (Parents, 2 kids) Occupation: Unemployed ED ROS GENERAL - Review of Systems Review Of Systems: Comprehensive ROS is negative, except as noted in HPI. ED EXAM, ANIMAL BITE - Physical Exam Exam: See Below Exam Limited By: No Limitations General Appearance: Alert, WD/WN, No Apparent Distress Eye Exam: Bilateral Eye: EOMI, Normal Inspection, PERRL Ears: Normal External Exam, Normal Canal, Hearing Grossly Normal, Normal TMs Nose: Normal Inspection Throat/Mouth: Normal Inspection, Normal Lips, Normal Teeth, Normal Gums, Normal Oropharynx, Normal Voice, No Airway Compromise Head: Normocephalic, Other (see skin assessment). No: Facial Swelling, Facial Tenderness Neck: Normal Inspection, Supple, Non-Tender, Full Range of Motion Respiratory/Chest: No Respiratory Distress, Lungs Clear, Normal Breath Sounds, No Accessory Muscle Use, Chest Non-Tender Cardiovascular: Normal Peripheral Pulses, Regular Rate, Rhythm, No Murmur Extremities: Normal Inspection, Normal Capillary Refill Neurological: Alert, Oriented, Normal Cognition, No Motor/Sensory Deficits Psychiatric: Normal Affect, Normal Mood Skin Exam: Normal Color, Warm/Dry, Other (Multiple small wounds noted to the left side of the patient's face, mostly along the mandible distribution. 1 puncture type wound that measures 3 mm in length, and other small superficial abrasions measuring 5 mm or less) Front/Back Body Diagram: 1 - area of dog bite Course - Vital Signs Last Recorded V/S: Last Vital Signs Temp 97.9 F 03/23/20 16:30 Pulse 90 05/27/19 16:30 Resp 16 05/27/19 16:30 BP 139/85 05/27/19 16:30 Pulse Ox 98 05/27/19 16:30 - Re-Assessments/Exams Free Text/Narrative Re-Assessment/Exam: 05/27/19 17:14 Patient presents to the ED for the evaluation of a dog bite on her face. All of the wounds are fairly superficial, there is 1 more of a puncture type wound as noted in physical exam. These were cleansed, and will be allowed to drain. Patient will be given general recommendations, a prescription for Augmentin, and have her follow through with police on finding the animal, to see if she needs to get the rabies series. Departure - Departure Time of Disposition: 17:07 Disposition: Home, Self-Care 01 Condition: Fair Clinical Impression: Dog bite of face Qualifiers: Encounter type: initial encounter Qualified Code(s): S01.85XA - Open bite of other part of head, initial encounter - Discharge Information *PRESCRIPTION DRUG MONITORING PROGRAM REVIEWED*: No *COPY OF PRESCRIPTION DRUG MONITORING REPORT IN PATIENT CHIDI: No Prescriptions: Amoxicillin/Clavulanate K [Augmentin 875-125 MG] 1 tab PO BID #14 tablet Instructions: Animal Bite, Adult, [id number] Referrals: Lidia Multani PA-C [Primary Care Provider] - Forms: ED Department Discharge Additional Instructions: You were evaluated in the ER today regarding the dog bite on your face. You were started on a antibiotic, Augmentin, please take 1 tab 2 times a day for the next 7 days. Please note that this antibiotic can cause diarrhea, so obtain a probiotic from the pharmacy, ask your pharmacist to recommend 1. Regarding possible rabies, keep in close contact with police/animal control to see if the animal can be found within 72 hours, and then consult with your regular provider/[facility], on whether or not you should proceed with the rabies series. At this time suspicion for rabies infection is quite low, unless proven otherwise by no vaccine records stating that the animal has had its vaccinations. The wounds will need to drain, As they are considered dirty wounds, please keep the area is cleansed with warm soapy water, you may apply topical antibiotic ointment if desired. Please return to the ER at any time if symptoms should change or worsen. Sepsis Event Note - Evaluation Sepsis Screening Result: No Definite Risk - Focused Exam Vital Signs: Vital Signs Temp Pulse Resp BP Pulse Ox 05/27/19 16:30 97.9 F 90 16 139/85 98 Date Exam was Performed: 05/27/19 Time Exam was Performed: 17:10
== END 2019-05-27 17:24 | disposition home or self-care (01) ==
LOC: JD.ED 16:24
DX: S01.85XA Open bite of other part of head, initial encounter (principal); I10 Essential (primary) hypertension; J45.909 Unspecified asthma, uncomplicated; F41.9 Anxiety disorder, unspecified; F32.9 Major depressive disorder, single episode, unspecified; E66.9 Obesity, unspecified; Z68.33 Body mass index [BMI] 33.0-33.9, adult; F17.210 Nicotine dependence, cigarettes, uncomplicated; Z91.048 Other nonmedicinal substance allergy status; Z79.899 Other long term (current) drug therapy; W54.0XXA Bitten by dog, initial encounter
CPT/HCPCS: 99283

== ENCOUNTER 2019-11-17 11:35 | Emergency (ER) | payer MEDICAID ==
--- NOTE | 2019-11-17 12:22 | EDM.PDOC ---
ED HPI GENERAL MEDICAL PROBLEM - General Chief Complaint: Abdominal Pain Stated Complaint: ABDOMINAL/BACK PAIN Time Seen by Provider: 11/17/19 12:19 Source of Information: Reports: Patient History Limitations: Reports: No Limitations - History of Present Illness INITIAL COMMENTS - FREE TEXT/NARRATIVE: 29-year-old female presents to the ED complaining of diarrhea or loose stools for the better part of a month. She will not comment or pin down how many bowel movements per day she is having but she estimates between 5 and 8. She noticed varying color some are quite dark in color. Feels a lot of rectal urgency. There is never been any bright blood per rectum. If she eats she feels food goes right through her within about 10 minutes. She has no previous abdominal surgeries Feels diffuse pressure in both lower quadrants of the abdomen and around into sides of her lower back. Feels lightheaded dizzy and weak with standing. Mild associated cramps with the diarrhea. Sometimes some chills predate the diarrhea. She has not been camping. Denies drinking from well water. Possibility of foodborne illness does exist as she eats out frequently. Onset: Gradual, Other (Symptoms for the last month or so.) Duration: Week(s):, Chronic, Constant, Getting Worse (Is getting a little worse the last few days) Location: Reports: Abdomen (Diffuse lower abdominal pain with chronic loose stools 5-8 times per day.) Quality: Reports: Ache (Across lower abdomen into both sides of her lower back) Severity: Moderate Improves with: Reports: None Worsens with: Reports: Eating (Eating makes the diarrhea and) Context: Denies: Activity, Exercise, Lifting, Sick Contact, Trauma, Other Associated Symptoms: Reports: Fever/Chills, Headaches, Loss of Appetite (Occasional chills before the diarrhea will occur.), Malaise, Nausea/Vomiting (Occasional nausea no vomiting), Weakness (Generalized sense of weakness). 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 Particular the sertraline she has been on for about a year.) Abdomen Pain Score (Numeric/FACES): 2 - Related Data Allergies Allergy/AdvReac Type Severity Reaction Status Date / Time [place] Allergy Shortness Uncoded 11/17/19 12:01 of Breath Home Meds: Home Meds atenoloL [Atenolol] 25 mg PO DAILY 11/14/18 [History] LORazepam [Ativan] 0.5 mg PO TID 05/08/19 [History] Sertraline HCl [Zoloft] 100 mg PO DAILY 05/27/19 [History] Ciprofloxacin HCl [Cipro] 500 mg PO BID #14 tablet 11/17/19 [Rx] Dicyclomine [Bentyl] 20 mg PO Q6H PRN #10 tablet 11/17/19 [Rx] metroNIDAZOLE [Flagyl] 500 mg PO Q8H #21 tab 11/17/19 [Rx] Past Medical History - Past Health History Medical/Surgical History: Denies Medical/Surgical History Cardiovascular History: Reports: Hypertension, Other (See Below) Other Cardiovascular History: Pt reports she has palpitations. 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: , Other (See Below) Other ELECTRIC LINEMAN History: IUD Musculoskeletal History: Reports: None Neurological History: Reports: Headaches, Chronic Psychiatric History: Reports: Anxiety, Depression Endocrine/Metabolic History: Reports: Obesity/BMI 30+ Hematologic History: Reports: None Immunologic History: Reports: None Oncologic (Cancer) History: Reports: None Dermatologic History: Reports: Eczema, Psoriasis - Infectious Disease History Infectious Disease History: Reports: Chicken Pox - Past Surgical History Head Surgeries/Procedures: Reports: None HEENT Surgical History: Reports: Oral Surgery Social & Family History - Tobacco Use Smoking Status *Q: Current Every Day Smoker Years of Tobacco use: 13 Packs/Tins Daily: 1 - Caffeine Use Caffeine Use: Reports: Coffee - Recreational Drug Use Recreational Drug Use: Yes Drug Use in Last 12 Months: Yes Recreational Drug Type: Reports: Marijuana/Hashish Recreational Drug Use Frequency: Rarely - Living Situation & Occupation Living situation: Reports: Single, with Family (Parents, 2 kids) Occupation: Unemployed ED ROS GENERAL - Review of Systems Review Of Systems: See Below Constitutional: Reports: Chills, Malaise, Weakness (Patient will chills before the diarrhea will occur.), Fatigue, Decreased Appetite, Weight Loss. Denies: Fever HEENT: Reports: No Symptoms Respiratory: Reports: No Symptoms Cardiovascular: Reports: Lightheadedness. Denies: Chest Pain, Blood Pressure Problem, Claudication, Dyspnea on Exertion, Orthopnea Endocrine: Reports: Fatigue GI/Abdominal: Reports: Abdominal Pain (Diffuse lower abdominal discomfort across both sides of the lower abdomen and into her), Diarrhea, Decreased Appetite ( flanks.), Mucous in Stool, Nausea. Denies: Hematemesis, Hematochezia (Chronic loose stools sometimes semi-formed no blood.), Melena : Reports: Other Musculoskeletal: Reports: Back Pain (Fuhs low back pain) Skin: Reports: No Symptoms Neurological: Reports: Dizziness, Headache, Weakness (Generalized). Denies: Confusion, Paresthesia, Pre-Existing Deficit, Seizure, Syncope, Tremors, Trouble Speaking, Difficulty Walking Psychiatric: Reports: Anxiety, Depression Hematologic/Lymphatic: Reports: No Symptoms Immunologic: Reports: No Symptoms ED EXAM, GI/ABD - Physical Exam Exam: See Below Exam Limited By: No Limitations General Appearance: Alert, WD/WN, No Apparent Distress, Other (Temperature is 36.4 with a heart rate of 64 and sinus respiratory to 16 with O2 sats of 97% room air BP 117/70.) Eyes: Bilateral: Normal Appearance (No scleral icterus or blepharal pallor.) Throat/Mouth: Normal Inspection, Normal Lips, Normal Oropharynx, Other Head: Atraumatic (Tongue is slightly dry.), Normocephalic Neck: Normal Inspection, Supple, Non-Tender, Full Range of Motion. No: Lymphadenopathy (L), Lymphadenopathy (R) Respiratory/Chest: No Respiratory Distress, Lungs Clear, Normal Breath Sounds, No Accessory Muscle Use, Chest Non-Tender Cardiovascular: Normal Peripheral Pulses, Regular Rate, Rhythm, No Edema, No Gallop, No Murmur, No Rub GI/Abdominal Exam: Normal Bowel Sounds, Soft, Non-Tender, No Organomegaly, No Abnormal Bruit, No Mass, Pelvis Stable. No: Guarding, Rigid, Rebound, Tender Back Exam: Normal Inspection, Full Range of Motion, Paraspinal Tenderness (Minimal paraspinal muscle tenderness along the). No: CVA Tenderness (L), CVA Tenderness (R) Extremities: Normal Inspection ( lumbar vertebra bilaterally.), Normal Range of Motion, Non-Tender, No Pedal Edema Neurological: Alert, Oriented, CN II-XII Intact, Normal Cognition Psychiatric: Normal Affect, Normal Mood Skin Exam: Warm, Dry, Intact, Normal Color, No Rash Course - Vital Signs Last Recorded V/S: Last Vital Signs Temp 36.4 C 11/17/19 11:58 Pulse 73 11/17/19 14:55 Resp 16 11/17/19 11:58 BP 120/70 11/17/19 14:55 Pulse Ox 97 11/17/19 11:58 - Orders/Labs/Meds Orders: Active Orders 24 hr Category Date Time Status Abdomen 1V Flat [CR] Stat Exams 11/17/19 12:33 Taken Labs: Laboratory Tests 11/17/19 11/17/19 11/17/19 Range/Units 12:45 12:50 12:50 WBC 7.80 (3.98-10.04) K/mm3 RBC 4.79 (3.98-5.22) M/mm3 Hgb 14.8 (11.2-15.7) gm/dl Hct 44.6 (34.1-44.9) % MCV 93.1 D (79.4-94.8) fl MCH 30.9 (25.6-32.2) pg MCHC 33.2 (32.2-35.5) g/dl RDW Std Deviation 44.2 (36.4-46.3) fL Plt Count 155 L (182-369) K/mm3 MPV 12.4 H (9.4-12.3) fl Neut % (Auto) 69.2 (34.0-71.1) % Lymph % (Auto) 20.5 (19.3-51.7) % Ray % (Auto) 5.8 (4.7-12.5) % Eos % (Auto) 3.8 (0.7-5.8) Baso % (Auto) 0.4 (0.1-1.2) % Neut # (Auto) 5.40 (1.56-6.13) K/mm3 Lymph # (Auto) 1.60 (1.18-3.74) K/mm3 Ray # (Auto) 0.45 H (0.24-0.36) K/mm3 Eos # (Auto) 0.30 (0.04-0.36) K/mm3 Baso # (Auto) 0.03 (0.01-0.08) K/mm3 PT (9.7-11.7) SECONDS INR APTT (22-31) SECONDS Sodium 138 (136-145) mEq/L Potassium 4.1 (3.5-5.1) mEq/L Chloride 103 (98-107) mEq/L Carbon Dioxide 24 (21-32) mEq/L Anion Gap 15.1 H (5-15) BUN 9 (7-18) mg/dL Creatinine 0.9 (0.55-1.02) mg/dL Est Cr Clr Drug Dosing 81.50 mL/min Estimated GFR (MDRD) > 60 (>60) mL/min BUN/Creatinine Ratio 10.0 L (14-18) Glucose 92 (74-106) mg/dL Calcium 8.9 (8.5-10.1) mg/dL Magnesium 2.1 (1.8-2.4) mg/dl Total Bilirubin 0.5 (0.2-1.0) mg/dL AST 29 (15-37) U/L ALT 45 (14-59) U/L Alkaline Phosphatase 45 L (46-116) U/L C-Reactive Protein 0.6 (<1.0) mg/dL Total Protein 7.6 (6.4-8.2) g/dl Albumin 4.0 (3.4-5.0) g/dl Globulin 3.6 gm/dL Albumin/Globulin Ratio 1.1 (1-2) TSH 3rd Generation 1.481 (0.358-3.74) uIU/mL Urine Color Yellow (Yellow) Urine Appearance Clear (Clear) Urine pH 6.0 (5.0-8.0) Ur Specific Council 1.015 (1.005-1.030) Urine Protein Negative (Negative) Urine Glucose (UA) Negative (Negative) Urine Ketones Negative (Negative) Urine Occult Blood Trace-intact H (Negative) Urine Nitrite Negative (Negative) Urine Bilirubin Negative (Negative) Urine Urobilinogen 0.2 (0.2-1.0) Ur Leukocyte Esterase Negative (Negative) Urine RBC 0-5 (0-5) /hpf Urine WBC 0-5 (0-5) /hpf Ur Squamous Epith Cells 0-5 (0-5) /hpf Urine Bacteria Rare (FEW) /hpf Urine Mucus Not seen (FEW) /hpf Ketones (0.0-0.3) mM 11/17/19 11/17/19 Range/Units 12:50 12:50 WBC (3.98-10.04) K/mm3 RBC (3.98-5.22) M/mm3 Hgb (11.2-15.7) gm/dl Hct (34.1-44.9) % MCV (79.4-94.8) fl MCH (25.6-32.2) pg MCHC (32.2-35.5) g/dl RDW Std Deviation (36.4-46.3) fL Plt Count (182-369) K/mm3 MPV (9.4-12.3) fl Neut % (Auto) (34.0-71.1) % Lymph % (Auto) (19.3-51.7) % Ray % (Auto) (4.7-12.5) % Eos % (Auto) (0.7-5.8) Baso % (Auto) (0.1-1.2) % Neut # (Auto) (1.56-6.13) K/mm3 Lymph # (Auto) (1.18-3.74) K/mm3 Ray # (Auto) (0.24-0.36) K/mm3 Eos # (Auto) (0.04-0.36) K/mm3 Baso # (Auto) (0.01-0.08) K/mm3 PT 11.0 (9.7-11.7) SECONDS INR 1.03 APTT 26 (22-31) SECONDS Sodium (136-145) mEq/L Potassium (3.5-5.1) mEq/L Chloride (98-107) mEq/L Carbon Dioxide (21-32) mEq/L Anion Gap (5-15) BUN (7-18) mg/dL Creatinine (0.55-1.02) mg/dL Est Cr Clr Drug Dosing mL/min Estimated GFR (MDRD) (>60) mL/min BUN/Creatinine Ratio (14-18) Glucose (74-106) mg/dL Calcium (8.5-10.1) mg/dL Magnesium (1.8-2.4) mg/dl Total Bilirubin (0.2-1.0) mg/dL AST (15-37) U/L ALT (14-59) U/L Alkaline Phosphatase (46-116) U/L C-Reactive Protein (<1.0) mg/dL Total Protein (6.4-8.2) g/dl Albumin (3.4-5.0) g/dl Globulin gm/dL Albumin/Globulin Ratio (1-2) TSH 3rd Generation (0.358-3.74) uIU/mL Urine Color (Yellow) Urine Appearance (Clear) Urine pH (5.0-8.0) Ur Specific Council (1.005-1.030) Urine Protein (Negative) Urine Glucose (UA) (Negative) Urine Ketones (Negative) Urine Occult Blood (Negative) Urine Nitrite (Negative) Urine Bilirubin (Negative) Urine Urobilinogen (0.2-1.0) Ur Leukocyte Esterase (Negative) Urine RBC (0-5) /hpf Urine WBC (0-5) /hpf Ur Squamous Epith Cells (0-5) /hpf Urine Bacteria (FEW) /hpf Urine Mucus (FEW) /hpf Ketones 0.03 (0.0-0.3) mM Meds: Medications Discontinued Medications Generic Name Dose Route Start Last Admin Trade Name Freq PRN Reason Stop Dose Admin Dextrose/Lactated Ringer's 1,000 mls @ 999 mls/hr 11/17/19 12:30 11/17/19 12:54 Dextrose 5%-Lactated Ringers IV 999 mls/hr ASDIRECTED BLANK Administration - Radiology Interpretation Free Text/Narrative:: 29-year-old female presents to the ED with a 1 month history of loose stools sometimes diarrhea sometimes semi-formed, proximately 5-8 times per day. There is intestinal hurry if she eats food usually goes through within 10 minutes. She thinks she is losing some weight. She came in today because of diffuse lower abdominal discomfort. She denies any blood per rectum. There is a possibility of foodborne illness as she eats out fairly regular. Examination is completely normal. Plan IV D5 normal saline at open. Routine labs to be collected in a stool sample if 1 becomes available. She will have 1 view of the abdomen performed. - Re-Assessments/Exams Free Text/Narrative Re-Assessment/Exam: 11/17/19 13:08 White count is normal at 7.80 with auto differential showing 69% neutrophils. Hemoglobin is 14.8 with hematocrit of 44.6. Platelet counts 155,000. 11/17/19 13:56 PT is 11.0 with an INR of 1.03. PTT is 26. Sodium 138 with a potassium of 4.1. Chloride 103 with a bicarb of 24. Anion gap is 15.1. BUN is 9 with a creatinine of 0.9. She is well-hydrated glucose is 92 with a calcium of 8.9. Magnesium is 2.1. Liver function is normal. C-reactive protein is 0.6. Total protein 7.6 with an albumin fraction of 4.0. TSH is normal at 1.48. Ketones are 0.03. KUB reveals some increased formed stool in the right hemicolon. There are diffuse nonspecific dilated loops of small bowel in the left mid abdomen. The rectal vault is empty. IUD is in appropriate position. 11/17/19 14:44 she has been unsuccessful at passing a stool while in the department. The history suggest that she may well have an organism inflaming her stomach which causes intestinal hurry and diarrhea. Is unlikely that she has ulcerative colitis or inflammatory bowel disease as he has no bloody diarrhea. Possibility of foodborne illness exist versus H. pylori infection or less likely Giardia lamblia infection. Therefore I am going to put her on antibiotics Flagyl 500 mg 3 times daily for the next week and Cipro 500 mg twice daily for 6 days. Bentyl 20 mg every 6 hours as needed for relief of abdominal cramping pain. She is to follow-up with her primary care provider in 7 to 10 days time. If not better she will require formal stool sampling for culture and a colonoscopy and possibly an upper GI endoscopy. Departure - Departure Time of Disposition: 14:47 Disposition: Home, Self-Care 01 Condition: Fair Clinical Impression: Chronic diarrhea Abdominal pain Qualifiers: Abdominal location: generalized Qualified Code(s): R10.84 - Generalized abdominal pain - Discharge Information *PRESCRIPTION DRUG MONITORING PROGRAM REVIEWED*: Not Applicable *COPY OF PRESCRIPTION DRUG MONITORING REPORT IN PATIENT CHIDI: Not Applicable Prescriptions: Dicyclomine [Bentyl] 20 mg PO Q6H PRN #10 tablet PRN Reason: Abdominal cramps/diarrhea Ciprofloxacin HCl [Cipro] 500 mg PO BID #14 tablet metroNIDAZOLE [Flagyl] 500 mg PO Q8H #21 tab Instructions: Chronic Diarrhea Referrals: Nerissa,Lidia L, PA-C [Primary Care Provider] - Forms: ED Department Discharge Additional Instructions: Evaluation in the emergency room today in regards to chronic abdominal pain for over a month with recurrent loose bowel movements or diarrhea for the last month as well. If you eat anything you develop intestinal hurry where the food seems to go right through you. Lab test did not reveal any signs of serious infection. No signs of illness with the pancreas liver kidneys etc. No signs of anemia or internal bleeding. An x-ray of the abdomen show some increased stool that is formed in the right colon but the rest of the colon is empty. The IUD is in appropriate position in your uterus in the pelvis. Since you are unable to produce a stool in the ED for sampling it is my suggestion that you try a trial of medication IV antibiotics to see if this will clear up suspect gastrointestinal infection possibly foodborne illness. Suggest use of Bentyl 20 mg tablet every 6 hours needed for relief of abdominal pain and/or cramping and it will also slow down diarrhea. Use antibiotic Flagyl 500 mg 3 times daily for the next week and Cipro 500 mg tablet twice daily for the next week to clear up foodborne illness. If you are still having problems after this then follow-up with your personal care physician is indicated to arrange for an upper GI e ndoscopy and a colonoscopy. Also stool sampling should be obtained to rule out H. pylori infection and parasitic infection such as Giardia lamblia. Sepsis Event Note (ED) - Evaluation Sepsis Screening Result: No Definite Risk - Focused Exam Vital Signs: Vital Signs Temp Pulse Resp BP Pulse Ox 11/17/19 14:55 73 120/70 11/17/19 11:58 36.4 C 64 16 117/70 97 - My Orders Last 24 Hours: My Active Orders 11/17/19 12:33 Abdomen 1V Flat [CR] Stat - Assessment/Plan Last 24 Hours: My Active Orders 11/17/19 12:33 Abdomen 1V Flat [CR] Stat
[2019-11-17] MEDS ORDERED: Dextrose 5%-Lactated Ringers 1,000 ML IV SCH (12:30)
[2019-11-17 14:56] VITALS: BP 120/70; PULSE 73
--- NOTE | 2019-11-17 19:42 | CR ---
Abdomen: Supine view of the abdomen was obtained. Comparison: No prior abdominal imaging is available. IUD is noted within the pelvis. Bowel gas pattern is normal. No soft tissue abnormality is appreciated. No abnormal calcifications are present. Bony structure shows no discrete abnormality. Impression: 1. IUD. 2. Nothing acute is appreciated on supine abdominal x-ray. Diagnostic code #2 This report was dictated in MDT
== END 2019-11-17 15:07 | disposition home or self-care (01) ==
LOC: JD.ED 11:35
DX: K52.9 Noninfective gastroenteritis and colitis, unspecified (principal); I10 Essential (primary) hypertension; J45.909 Unspecified asthma, uncomplicated; F41.9 Anxiety disorder, unspecified; F32.9 Major depressive disorder, single episode, unspecified; E66.9 Obesity, unspecified; F17.210 Nicotine dependence, cigarettes, uncomplicated; Z68.36 Body mass index [BMI] 36.0-36.9, adult; Z91.048 Other nonmedicinal substance allergy status; Z79.899 Other long term (current) drug therapy
CPT/HCPCS: 36415; 74018; 80053; 81001; 82009; 83735; 84443; 85025; 85610; 85730; 86140; 96360; 99284; J7121

== ENCOUNTER 2019-11-20 20:00 | Emergency (ER) | payer MEDICAID ==
[2019-11-20 20:17] VITALS: BP 113/63; PULSE 71
[2019-11-20] MEDS ORDERED: Ketorolac 30 MG/ML SDV IVPUSH ONE (20:30)
[2019-11-20] MEDS ORDERED: Sodium Chloride 0.9% 10 ML Syringe FLUSH PRN (20:30)
[2019-11-20] MEDS ORDERED: Metoclopramide 10 MG/2 ML SDV IVPUSH ONE (20:30)
[2019-11-20] MEDS ORDERED: Sodium Chloride 0.9% 1,000 ML IV ONE (20:30)
--- NOTE | 2019-11-20 20:36 | EDM.PDOC ---
ED HPI GENERAL MEDICAL PROBLEM - General Chief Complaint: Abdominal Pain Stated Complaint: ABDOMINAL PAIN Time Seen by Provider: 11/20/19 20:14 Source of Information: Reports: Patient, Old Records, RN Notes Reviewed History Limitations: Reports: No Limitations - History of Present Illness INITIAL COMMENTS - FREE TEXT/NARRATIVE: Patient is a 29-year-old female who presents to the ED for evaluation of her ongoing abdomen pain. Patient was evaluated this last Monday by Dr. Beltran in this ER, and was given a course of Cipro and Flagyl along with Bentyl for pain management. Patient states that the Cipro and Flagyl seem to be helping, but the Bentyl makes her "feel funny", so she only takes this when the pain is at its absolute worst. She is not taking anything else for the pain. She states that it hurts a lot to sit, stand, or lay down. She does not notice anything that really helps. She did go to the walk-in clinic today, for the ongoing pain relief, and they deferred her here for further imaging. She had labs taken, CBC is unremarkable, urinalysis is negative for infection, and her urine test was negative. Patient states she still feels mildly nauseous but has not had any vomiting. She states that her stools are formed. She has not had her period in the last 2 months. She states she is a worrier, and was concerned that she could have some sort of cancer versus other etiology for this abdomen pressure and pain. She notes that this is in her right and lower quadrant, and seems to wrap into her groin. She is not having any fevers or chills, cough/shortness of breath,, she does state however that she get some hot flashes when the pain is at its worst. Vomiting/diarrhea she has been able to eat and drink okay at this time. Left Lower Abdominal Pain Score (Numeric/FACES): 6 - Related Data Allergies Allergy/AdvReac Type Severity Reaction Status Date / Time [place] Allergy Shortness Uncoded 11/20/19 20:18 of Breath Home Meds: Home Meds atenoloL [Atenolol] 25 mg PO DAILY 11/14/18 [History] LORazepam [Ativan] 0.5 mg PO TID 05/08/19 [History] Sertraline HCl [Zoloft] 100 mg PO DAILY 05/27/19 [History] Ciprofloxacin HCl [Cipro] 500 mg PO BID #14 tablet 11/17/19 [Rx] Dicyclomine [Bentyl] 20 mg PO Q6H PRN #10 tablet 11/17/19 [Rx] metroNIDAZOLE [Flagyl] 500 mg PO Q8H #21 tab 11/17/19 [Rx] Past Medical History Cardiovascular History: Reports: Hypertension, Other (See Below) Other Cardiovascular History: Pt reports she has palpitations. 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 MOBILITY MANAGER History: IUD Neurological History: Reports: Headaches, Chronic Psychiatric History: Reports: Anxiety, Depression Endocrine/Metabolic History: Reports: Obesity/BMI 30+ Dermatologic History: Reports: Eczema, Psoriasis - Infectious Disease History Infectious Disease History: Reports: Chicken Pox - Past Surgical History HEENT Surgical History: Reports: Oral Surgery Social & Family History - Tobacco Use Smoking Status *Q: Current Every Day Smoker Years of Tobacco use: 15 Packs/Tins Daily: 1 - Caffeine Use Caffeine Use: Reports: Coffee - Living Situation & Occupation Living situation: Reports: Single, with Family (Parents, 2 kids) Occupation: Unemployed ED ROS GENERAL - Review of Systems Review Of Systems: Comprehensive ROS is negative, except as noted in HPI. ED EXAM, GI/ABD - Physical Exam Exam: See Below Exam Limited By: No Limitations General Appearance: Alert, WD/WN, No Apparent Distress Respiratory/Chest: No Respiratory Distress, Lungs Clear, Normal Breath Sounds, No Accessory Muscle Use, Chest Non-Tender Cardiovascular: Normal Peripheral Pulses, Regular Rate, Rhythm, No Murmur GI/Abdominal Exam: Normal Bowel Sounds, Soft, No Distention, No Mass, Tender (throughout entire lower abdomen.) (Female) Exam: Deferred Extremities: Normal Inspection, Normal Capillary Refill Neurological: Alert, Oriented, Normal Cognition, No Motor/Sensory Deficits Psychiatric: Normal Affect, Normal Mood Skin Exam: Warm, Dry, Intact, Normal Color, No Rash Course - Vital Signs Last Recorded V/S: Last Vital Signs Temp 97.8 F 11/20/19 20:13 Pulse 71 11/20/19 20:13 Resp 16 11/20/19 20:13 BP 113/63 11/20/19 20:13 Pulse Ox 97 11/20/19 20:13 - Orders/Labs/Meds Orders: Active Orders 24 hr Category Date Time Status Peripheral IV Insertion Adult [OM.PC] Routine Oth 11/20/19 20:29 Ordered Meds: Medications Discontinued Medications Generic Name Dose Route Start Last Admin Trade Name Freq PRN Reason Stop Dose Admin Sodium Chloride 1,000 mls @ 999 mls/hr 11/20/19 20:30 11/20/19 20:42 Normal Saline IV 11/20/19 21:30 999 mls/hr ONETIME ONE Administration Ketorolac Tromethamine 30 mg 11/20/19 20:30 11/20/19 20:41 Toradol IVPUSH 11/20/19 20:31 30 mg ONETIME ONE Administration Metoclopramide HCl 10 mg 11/20/19 20:30 11/20/19 20:40 Reglan IVPUSH 11/20/19 20:31 10 mg ONETIME ONE Administration Sodium Chloride 10 ml 11/20/19 20:30 11/20/19 20:42 Saline Flush FLUSH 10 ml ASDIRECTED PRN Administration Keep Vein Open - Re-Assessments/Exams Free Text/Narrative Re-Assessment/Exam: 11/20/19 20:35 Patient presents to the ED for ongoing abdomen pain. She had abdomen x-ray done at her last exam. We will go forward with CT at this time, will not repeat labs today, as she had them done at the [place] walk-in clinic. She had a copy of these and all are within normal limits or negative. Should be given some IV fluids, along with Reglan and Toradol for management. 11/20/19 21:03 The patient just called to the front, and states that she does go get her kids, and is leaving the emergency room. At this point in time she is leaving AMA, as she has not had her CT performed. I do not believe she has any life- threatening illnesses that are causing issues. Departure - Departure Time of Disposition: 21:03 Disposition: Against Medical Advice 07 Condition: Good Clinical Impression: Lower abdominal pain - Discharge Information Referrals: Lidia Multani PA-C [Primary Care Provider] - Forms: ED Department Discharge Sepsis Event Note (ED) - Evaluation Sepsis Screening Result: No Definite Risk - Focused Exam Vital Signs: Vital Signs Temp Pulse Resp BP Pulse Ox 11/20/19 20:13 97.8 F 71 16 113/63 97 - My Orders Last 24 Hours: My Active Orders 11/20/19 20:29 Peripheral IV Insertion Adult [OM.PC] Routine - Assessment/Plan Last 24 Hours: My Active Orders 11/20/19 20:29 Peripheral IV Insertion Adult [OM.PC] Routine
== END 2019-11-20 21:10 | disposition left against medical advice (07) ==
LOC: JD.ED 20:00
DX: R10.30 Lower abdominal pain, unspecified (principal); I10 Essential (primary) hypertension; J45.909 Unspecified asthma, uncomplicated; F41.9 Anxiety disorder, unspecified; F32.9 Major depressive disorder, single episode, unspecified; E66.9 Obesity, unspecified; F17.210 Nicotine dependence, cigarettes, uncomplicated; Z68.36 Body mass index [BMI] 36.0-36.9, adult; Z91.048 Other nonmedicinal substance allergy status; Z79.899 Other long term (current) drug therapy
CPT/HCPCS: 96374; 96375; 99283; J1885; J2765; J7030

== ENCOUNTER 2020-02-23 13:17 | Emergency (ER) | payer MEDICAID ==
[2020-02-23 13:38] VITALS: BP 124/67; PULSE 77
--- NOTE | 2020-02-23 14:09 | EDM.PDOC ---
ED HPI GENERAL MEDICAL PROBLEM - General Chief Complaint: Lower Extremity Injury/Pain Stated Complaint: L LEG PAIN Time Seen by Provider: 02/23/20 13:50 - History of Present Illness INITIAL COMMENTS - FREE TEXT/NARRATIVE: 30-year-old female sent over from the walk-in clinic for an ultrasound of her left lower extremity with concerns of a blood clot. Patient awoke this morning with some left-sided numbness and tingling and dis comfort in her left upper and lower extremity her upper extremity got better her lower extremity improved quite a bit but still is quite uncomfortable. She was seen over the walk-in clinic with his told her to come over here for an ultrasound of her leg. Patient has not had any breathing difficulties no shortness of breath no chest pain no chest discomfort. Left Leg Pain Score (Numeric/FACES): 2 - Related Data Allergies Allergy/AdvReac Type Severity Reaction Status Date / Time [place] Allergy Shortness Uncoded 02/23/20 13:38 of Breath Home Meds: Home Meds LORazepam [Ativan] 0.5 mg PO TID 05/08/19 [History] Sertraline HCl [Zoloft] 100 mg PO DAILY 05/27/19 [History] Past Medical History - Past Health History Medical/Surgical History: Denies Medical/Surgical History Cardiovascular History: Reports: Hypertension, Other (See Below) Other Cardiovascular History: Pt reports she has palpitations. 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: , Other (See Below) Other TECHNOLOGY ASSISTANT History: IUD Musculoskeletal History: Reports: None Neurological History: Reports: Headaches, Chronic Psychiatric History: Reports: Anxiety, Depression Endocrine/Metabolic History: Reports: Obesity/BMI 30+ Hematologic History: Reports: None Immunologic History: Reports: None Oncologic (Cancer) History: Reports: None Dermatologic History: Reports: Eczema, Psoriasis - Infectious Disease History Infectious Disease History: Reports: Chicken Pox - Past Surgical History Head Surgeries/Procedures: Reports: None HEENT Surgical History: Reports: Oral Surgery Social & Family History - Tobacco Use Tobacco Use Status *Q: Current Every Day Tobacco User Years of Tobacco use: 15 Packs/Tins Daily: 1 - Caffeine Use Caffeine Use: Reports: None - Recreational Drug Use Recreational Drug Use: Yes Drug Use in Last 12 Months: Yes Recreational Drug Type: Reports: Marijuana/Hashish Recreational Drug Use Frequency: Rarely - Living Situation & Occupation Living situation: Reports: Single, with Family (Parents, 2 kids) Occupation: Unemployed Review of Systems - Review of Systems Review Of Systems: See Below Constitutional: Reports: No Symptoms Respiratory: Reports: No Symptoms Cardiovascular: Reports: No Symptoms GI/Abdominal: Reports: No Symptoms Genitourinary: Reports: No Symptoms Musculoskeletal: Reports: Other (Left upper extremity discomfort has improved left lower extremity discomfort has improved some but not completely) Skin: Reports: No Symptoms Neurological: Reports: No Symptoms Psychiatric: Reports: No Symptoms ED EXAM, GENERAL - Physical Exam Exam: See Below Exam Limited By: No Limitations General Appearance: Alert, No Apparent Distress Head: Atraumatic, Normocephalic Neck: Normal Inspection, Supple, Non-Tender, Full Range of Motion Respiratory/Chest: No Respiratory Distress, Lungs Clear, Normal Breath Sounds Cardiovascular: Regular Rate, Rhythm, No Edema, No Murmur GI/Abdominal: Normal Bowel Sounds, Soft, Non-Tender Extremities: Other (Discomfort this somewhat vague in her lower leg of concern is she has some medial discomfort over the thigh worse close to the femoral triangle.) Neurological: Alert, Oriented, Normal Cognition Course - Vital Signs Last Recorded V/S: Last Vital Signs Temp 36.3 C 02/23/20 13:34 Pulse 77 02/23/20 13:34 Resp 16 02/23/20 13:34 BP 124/67 02/23/20 13:34 Pulse Ox 98 02/23/20 13:34 - Orders/Labs/Meds Orders: Active Orders 24 hr Category Date Time Status VL Duplex Lwr Ext Veins Ltd Lt [US] Stat Exams 02/23/20 14:05 Taken - Re-Assessments/Exams Free Text/Narrative Re-Assessment/Exam: 02/23/20 14:12 I am not certain what is causing her pain we will check an ultrasound as this is what is expected. 02/23/20 15:38 Ultrasound is normal of the left lower extremity. Departure - Departure Time of Disposition: 15:38 Disposition: Home, Self-Care 01 Clinical Impression: Left leg pain - Discharge Information Referrals: Lidia Multani PA-C [Primary Care Provider] - Forms: ED Department Discharge Additional Instructions: Return to the emergency room with any questions problems or worsening symptoms. Use the meloxicam you were given in the walk-in clinic or Tylenol as needed for pain. Follow-up with your regular healthcare provider this next week if needed. Sepsis Event Note (ED) - Evaluation Sepsis Screening Result: No Definite Risk - Focused Exam Vital Signs: Vital Signs Temp Pulse Resp BP Pulse Ox 02/23/20 13:34 36.3 C 77 16 124/67 98 - My Orders Last 24 Hours: My Active Orders 02/23/20 14:05 VL Duplex Lwr Ext Veins Ltd Lt [US] Stat - Assessment/Plan Last 24 Hours: My Active Orders 02/23/20 14:05 VL Duplex Lwr Ext Veins Ltd Lt [US] Stat
--- NOTE | 2020-02-24 12:26 | US ---
Left lower extremity deep venous ultrasound: Duplex and color Doppler evaluation was obtained of the left common femoral, proximal greater saphenous, superficial femoral, popliteal, posterior tibial and peroneal veins. Right common femoral vein was also evaluated. Findings: Deep veins show normal phasic flow, augmentation and compression. Impression: 1. No evidence of deep venous thrombosis within the left lower extremity or within the right common femoral vein. Diagnostic code #1
== END 2020-02-23 15:50 | disposition home or self-care (01) ==
LOC: JD.ED 13:17
DX: M79.605 Pain in left leg (principal); I10 Essential (primary) hypertension; J45.909 Unspecified asthma, uncomplicated; F41.9 Anxiety disorder, unspecified; F32.9 Major depressive disorder, single episode, unspecified; F17.210 Nicotine dependence, cigarettes, uncomplicated; E66.9 Obesity, unspecified; Z68.35 Body mass index [BMI] 35.0-35.9, adult; Z91.048 Other nonmedicinal substance allergy status; Z79.899 Other long term (current) drug therapy
CPT/HCPCS: 93971-26-LT; 93971-LT; 99284-25

== ENCOUNTER 2020-07-16 15:39 | Emergency (ER) | payer MEDICAID ==
[2020-07-16 16:18] VITALS: BP 135/94; PULSE 97
--- NOTE | 2020-07-16 17:05 | EDM.PDOC ---
ED HPI GENERAL MEDICAL PROBLEM - General Chief Complaint: ENT Problem Stated Complaint: SWOLLEN TONSILS Time Seen by Provider: 07/16/20 16:32 - History of Present Illness INITIAL COMMENTS - FREE TEXT/NARRATIVE: 30-year-old female presents the emergency room with some white debris in the right side of her throat. The patient has been on amoxicillin a 10-day course for now 9 days for significant right dental infection. This is doing much better and she is can have many of her right lower teeth removed. However she was looking in the mirror because she had a tickling sensation back there and noticed what she thought was white debris. This was between the uvula and the side of her throat on her right side. The patient otherwise has been doing quite a better on the antibiotics as the infection is clearing her teeth. - Related Data Allergies Allergy/AdvReac Type Severity Reaction Status Date / Time [place] Allergy Shortness Uncoded 02/23/20 13:38 of Breath Home Meds: Home Meds LORazepam [Ativan] 0.5 mg PO TID 05/08/19 [History] Sertraline HCl [Zoloft] 100 mg PO DAILY 05/27/19 [History] Past Medical History - Past Health History Medical/Surgical History: Denies Medical/Surgical History Cardiovascular History: Reports: Hypertension, Other (See Below) Other Cardiovascular History: Pt reports she has palpitations. 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: , Other (See Below) Other ASPHALT ROLLER OPERATOR History: IUD Musculoskeletal History: Reports: None Neurological History: Reports: Headaches, Chronic Psychiatric History: Reports: Anxiety, Depression Endocrine/Metabolic History: Reports: Obesity/BMI 30+ Hematologic History: Reports: None Immunologic History: Reports: None Oncologic (Cancer) History: Reports: None Dermatologic History: Reports: Eczema, Psoriasis - Infectious Disease History Infectious Disease History: Reports: Chicken Pox - Past Surgical History Head Surgeries/Procedures: Reports: None HEENT Surgical History: Reports: Oral Surgery Social & Family History - Tobacco Use Tobacco Use Status *Q: Current Every Day Tobacco User Years of Tobacco use: 15 Packs/Tins Daily: 1 - Caffeine Use Caffeine Use: Reports: None - Recreational Drug Use Recreational Drug Use: No - Living Situation & Occupation Living situation: Reports: Single, with Family (Parents, 2 kids) Occupation: Unemployed ED ROS ENT - Review of Systems Review Of Systems: See Below Constitutional: Reports: No Symptoms HEENT: Reports: Other (Dental pain is getting better) Respiratory: Reports: No Symptoms Cardiovascular: Reports: No Symptoms GI/Abdominal: Reports: No Symptoms ED EXAM, ENT - Physical Exam Exam: See Below Exam Limited By: No Limitations General Appearance: Alert, No Apparent Distress Mouth/Throat: Other (Minimal swelling around the right lower teeth where the infection is. Looking in the back of her throat I cannot see what she was seen. I have looked multiple times.) Head: Atraumatic, Normocephalic, Other (No facial swelling) Neck: Normal Inspection, Supple, Non-Tender, Full Range of Motion, Lymphadenopathy (R) Respiratory/Chest: No Respiratory Distress, Lungs Clear, Normal Breath Sounds Cardiovascular: Regular Rate, Rhythm, No Edema, No Murmur Course - Vital Signs Last Recorded V/S: Last Vital Signs Temp 36.6 C 07/16/20 16:15 Pulse 97 07/16/20 16:15 Resp 18 07/16/20 16:15 BP 135/94 H 07/16/20 16:15 Pulse Ox 95 07/16/20 16:15 - Re-Assessments/Exams Free Text/Narrative Re-Assessment/Exam: 07/16/20 17:03 I am unclear if the patient saw a light reflection looking in the mirror but at this time I am not seeing anything. I did discuss my findings with the patient and she is assured by this. We will discharge home at this time Departure - Departure Time of Disposition: 17:04 Disposition: Home, Self-Care 01 Clinical Impression: Throat irritation - Discharge Information Referrals: Lidia Multani PA-C [Primary Care Provider] - Additional Instructions: Return to the emergency room with any questions problems or worsening symptoms. Follow-up with your dentist as scheduled. Sepsis Event Note (ED) - Evaluation Sepsis Screening Result: No Definite Risk - Focused Exam Vital Signs: Vital Signs Temp Pulse Resp BP Pulse Ox 07/16/20 16:15 36.6 C 97 18 135/94 H 95
== END 2020-07-16 17:09 | disposition home or self-care (01) ==
LOC: JD.ED 15:39
DX: R09.89 Other specified symptoms and signs involving the circulatory and respiratory systems (principal); J45.909 Unspecified asthma, uncomplicated; I10 Essential (primary) hypertension; E66.9 Obesity, unspecified; Z68.41 Body mass index [BMI] 40.0-44.9, adult; Z91.018 Allergy to other foods; Z91.048 Other nonmedicinal substance allergy status; Z79.899 Other long term (current) drug therapy; Z72.0 Tobacco use
CPT/HCPCS: 99282; 99283

== ENCOUNTER 2020-09-19 17:56 | Emergency (ER) | payer MEDICAID ==
[2020-09-19 18:39] VITALS: BP 123/74; PULSE 78
--- NOTE | 2020-09-19 19:21 | EDM.PDOC ---
ED HPI GENERAL MEDICAL PROBLEM - General Chief Complaint: Skin Complaint Stated Complaint: SKIN COMPLAINT/NOSE Time Seen by Provider: 09/19/20 18:42 Source of Information: Reports: Patient, RN Notes Reviewed History Limitations: Reports: No Limitations - History of Present Illness INITIAL COMMENTS - FREE TEXT/NARRATIVE: Pt is a 30 year old female presenting to ER with c/o right nare pain and concerns of a possibly infected septum piercing. She reports that she got her septum pierced 3 days ago at a tattoo parlor. The area has been getting progressively more swollen and painful. reports pain radiating up her right nare and to her right upper lip. Denies fever, chills, nausea, or vomiting. She would like the piercing removed. Nare Pain Score (Numeric/FACES): 7 - Related Data Allergies Allergy/AdvReac Type Severity Reaction Status Date / Time [place] Allergy Shortness Uncoded 02/23/20 13:38 of Breath Home Meds: Home Meds LORazepam [Ativan] 0.5 mg PO TID 05/08/19 [History] Sertraline HCl [Zoloft] 100 mg PO DAILY 05/27/19 [History] Doxycycline [Vibra-Tabs] 100 mg PO Q12HR 5 Days #10 tab 09/19/20 [Rx] Past Medical History - Past Health History Medical/Surgical History: Denies Medical/Surgical History Cardiovascular History: Reports: Hypertension, Other (See Below) Other Cardiovascular History: Pt reports she has palpitations. 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 (See Below) Other ROPING MACHINE TENDER History: IUD Musculoskeletal History: Reports: None Neurological History: Reports: Headaches, Chronic Psychiatric History: Reports: Anxiety, Depression Endocrine/Metabolic History: Reports: Obesity/BMI 30+ Hematologic History: Reports: None Immunologic History: Reports: None Oncologic (Cancer) History: Reports: None Dermatologic History: Reports: Eczema, Psoriasis - Infectious Disease History Infectious Disease History: Reports: Chicken Pox - Past Surgical History Head Surgeries/Procedures: Reports: None HEENT Surgical History: Reports: Oral Surgery Social & Family History - Tobacco Use Tobacco Use Status *Q: Current Every Day Tobacco User Years of Tobacco use: 14 Packs/Tins Daily: 1 - Caffeine Use Caffeine Use: Reports: Coffee - Recreational Drug Use Recreational Drug Use: No - Living Situation & Occupation Living situation: Reports: Single, with Family (Parents, 2 kids) Occupation: Unemployed ED ROS GENERAL - Review of Systems Review Of Systems: Comprehensive ROS is negative, except as noted in HPI. ED EXAM, SKIN/RASH Exam: See Below Exam Limited By: No Limitations General Appearance: Alert, Mild Distress Nose: Other (circular barbell peircing of the septum. Redness and edema to the peircing site in the right nare. Tenderness throughout the right nare and of the peircing site. ) Course - Vital Signs Last Recorded V/S: Last Vital Signs Temp 97.3 F 09/19/20 18:38 Pulse 78 09/19/20 18:38 Resp 20 09/19/20 18:38 BP 123/74 09/19/20 18:38 Pulse Ox 98 09/19/20 18:38 - Re-Assessments/Exams Free Text/Narrative Re-Assessment/Exam: Patient is a 30-year-old female presenting to the ER with concerns of pain and questionable infection to a new septum piercing. On exam, there is some mild redness and edema in the right nare at the site of the piercing. Tenderness of the area as well. Piercing was able to be easily removed after unscrewing the ball of the barbell. Patient will be placed on doxycycline for treatment of possible infection. Discharge instructions as documented. Departure - Departure Time of Disposition: 19:21 Disposition: Home, Self-Care 01 Condition: Good Clinical Impression: Inflammation associated with voluntary body piercing - Discharge Information *PRESCRIPTION DRUG MONITORING PROGRAM REVIEWED*: No *COPY OF PRESCRIPTION DRUG MONITORING REPORT IN PATIENT CHIDI: No Prescriptions: Doxycycline [Vibra-Tabs] 100 mg PO Q12HR 5 Days #10 tab Referrals: Lidia Multani PA-C [Primary Care Provider] - Additional Instructions: You were seen in the emergency department today for pain and swelling to your newly pierced septum. Your septum piercing was removed. Area is inflamed which may be signs of early infection. You were started on doxycycline for treatment of infection. Take this medication as prescribed. Use Tylenol or ibuprofen as needed for discomfort. Return to ER for any new or worsening symptoms. Sepsis Event Note (ED) - Evaluation Sepsis Screening Result: No Definite Risk - Focused Exam Vital Signs: Vital Signs Temp Pulse Resp BP Pulse Ox 09/19/20 18:38 97.3 F 78 20 123/74 98
== END 2020-09-19 19:45 | disposition home or self-care (01) ==
LOC: JD.ED 17:56
DX: T17.1XXA Foreign body in nostril, initial encounter (principal); I10 Essential (primary) hypertension; Z91.09 Other allergy status, other than to drugs and biological substances; Z72.0 Tobacco use
CPT/HCPCS: 99283

== ENCOUNTER 2020-09-24 21:07 | Emergency (ER) | payer MEDICAID ==
[2020-09-24 21:18] VITALS: BP 120/71; PULSE 79
--- NOTE | 2020-09-24 21:27 | EDM.PDOC ---
ED HPI GENERAL MEDICAL PROBLEM - General Chief Complaint: ENT Problem Stated Complaint: DENTAL PROBLEMS ON RIGHT SIDE OF FACE/PAIN & SWELL Time Seen by Provider: 09/24/20 21:23 Source of Information: Reports: Patient History Limitations: Reports: No Limitations - History of Present Illness INITIAL COMMENTS - FREE TEXT/NARRATIVE: 30-year-old female presents to the ED with dental pain originating from right lower teeth at this time. She states she was to the dentist yesterday and had x-rays done but apparently no infection was identified. She was on doxycycline for an infected nose ring but became sensitized to the medication and was discontinued prior to get completing her therapy. She has been off antibiotic for about a week. She states that since that time she has developed gradually worsening pain in the right lower second bicuspid tooth. Her right lower first and second teeth have been temporarily crown. Pain is currently rating down her posterior right lateral pharynx and along the mandible and right neck. Onset: Gradual Onset Date: 09/22/20 (Problems with right lower teeth worsening over the last 48 hours.) Duration: Day(s): (2 days), Getting Worse Location: Reports: Face (Dental pain) Quality: Reports: Ache, Throbbing, Other Severity: Severe (All saline) Improves with: Reports: None ( 910) Worsens with: Reports: Other (Even breathing deeply on the right side causes pain in her teeth.) Context: Denies: Activity ( Cannot eat or chew on that side at all.), Exercise, Lifting, Sick Contact, Trauma, Other Associated Symptoms: Reports: Loss of Appetite, Malaise. 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, NSAIDS (Motrin as needed) Right Lower Oral/Mouth Pain Score (Numeric/FACES): 5 - Related Data Allergies Allergy/AdvReac Type Severity Reaction Status Date / Time doxycycline AdvReac Severe Chest Verified 09/24/20 21:18 [place]sure [place] Allergy Severe Shortness Uncoded 09/24/20 21:18 of Breath Home Meds: Home Meds LORazepam [Ativan] 0.5 mg PO TID 05/08/19 [History] Acetaminophen [Tylenol Extra Strength] 500 mg PO DAILY PRN 09/24/20 [History] Amoxicillin/Clavulanate K [Augmentin 500-125 MG] 1 tab PO BID #20 tablet 09/24/20 [Rx] oxyCODONE HCl/Acetaminophen [Percocet 5-325 mg Tablet] 1 - 2 each PO Q4H PRN #15 tablet 09/24/20 [Rx] Past Medical History - Past Health History Medical/Surgical History: Denies Medical/Surgical History HEENT History: Reports: Other (See Below) Other HEENT History: Dental Caries, Upper Dentures Cardiovascular History: Reports: Hypertension, Other (See Below) Other Cardiovascular History: Pt reports she has palpitations. Respiratory History: Reports: Asthma Gastrointestinal History: Reports: Other (See Below) Other Gastrointestinal History: Stomach Ulcers Genitourinary History: Reports: None MANAGER MARKET History: Reports: , Other (See Below) Other MANAGER MARKET History: IUD Musculoskeletal History: Reports: None Neurological History: Reports: Headaches, Chronic Psychiatric History: Reports: Anxiety, Depression Endocrine/Metabolic History: Reports: Obesity/BMI 30+ Hematologic History: Reports: None Immunologic History: Reports: None Oncologic (Cancer) History: Reports: None Dermatologic History: Reports: Eczema, Psoriasis - Infectious Disease History Infectious Disease History: Reports: Chicken Pox - Past Surgical History HEENT Surgical History: Reports: Oral Surgery Social & Family History - Tobacco Use Tobacco Use Status *Q: Current Every Day Tobacco User Years of Tobacco use: 15 Packs/Tins Daily: 1 - Caffeine Use Caffeine Use: Reports: Coffee - Recreational Drug Use Recreational Drug Use: Yes Recreational Drug Type: Reports: Marijuana/Hashish - Living Situation & Occupation Living situation: Reports: Single, with Family (Parents, 2 kids) Occupation: Unemployed ED ROS ENT - Review of Systems Review Of Systems: See Below Constitutional: Reports: Fatigue, Decreased Appetite (From not sleeping well.). Denies: Fever, Chills, Malaise, Weakness HEENT: Reports: Dental Pain (Lower dental pain she is able to localize it to her right 2nd lower bicuspid tooth which is badly decayed) Respiratory: Reports: No Symptoms Cardiovascular: Reports: No Symptoms Endocrine: Reports: No Symptoms GI/Abdominal: Reports: No Symptoms : Reports: No Symptoms Musculoskeletal: Reports: No Symptoms Skin: Reports: No Symptoms Neurological: Reports: No Symptoms Psychiatric: Reports: Anxiety Hematologic/Lymphatic: Reports: No Symptoms ED EXAM, ENT - Physical Exam Exam: See Below Exam Limited By: No Limitations General Appearance: Alert, WD/WN, Mild Distress, Other (Temperature is 36.0. Heart rate 79 and sinus. Respiratory 16. O2 sats 100% room air BP 03/25/1970) Eye Exam: Bilateral Eye: Normal Inspection (No blepharal pallor or scleral icterus.), PERRL Mouth/Throat: Dental Pain (Your dental pain coming from the right lower 2nd bicuspid tooth which is nearly split in half due to dental caries with exposure of the dentin almost down to the root of the tooth. I the surrounding gingiva around the tooth is decayed away from the tooth as well. The 1st lower bicuspid tooth is al), Dental Tenderness (Right lower 2nd bicuspid tooth which is severely decayed.), Other (Complains of some tongue pain and has a very small pustule in irritant of the right anterior tongue.) Head: Atraumatic ( Posterior oropharynx is normal.), Normocephalic Neck: Normal Inspection, Supple, Non-Tender, Full Range of Motion, Other (Patient has no sick significant anterior posterior chain adenopathy or swelling etc.). No: Lymphadenopathy (L), Lymphadenopathy (R) Respiratory/Chest: No Respiratory Distress, Lungs Clear, Normal Breath Sounds, Chest Non-Tender Cardiovascular: Normal Peripheral Pulses, Regular Rate, Rhythm, No Edema, No Gallop, No Murmur, No Rub Course - Vital Signs Last Recorded V/S: Last Vital Signs Temp 36.0 C L 09/24/20 21:16 Pulse 79 09/24/20 21:16 Resp 16 09/24/20 21:16 BP 120/71 09/24/20 21:16 Pulse Ox 100 09/24/20 21:16 - Radiology Interpretation Free Text/Narrative:: 30-year-old female presents to the ED with dental abscess with badly decayed right lower 2nd bicuspid tooth. Half of the tooth is missing. The buccal gingiva margin is also missing with exposure of the lower portion of the tooth and presumably the root. Plan she will be placed on Augmentin 500/1 2 5 mg strength twice daily for the next 10 days to clear up infection. Percocet tabs 5 325 mg strength 1 or 2 every 4-6 hours with Motrin 600 mg every 6 hours for pain relief. 14 tablets of Percocet provided. She did see her dentist yesterday but will plan to follow-up with her again early next week. Departure - Departure Time of Disposition: 21:23 Disposition: Home, Self-Care 01 Condition: Fair Clinical Impression: Infected dental caries - Discharge Information *PRESCRIPTION DRUG MONITORING PROGRAM REVIEWED*: No *COPY OF PRESCRIPTION DRUG MONITORING REPORT IN PATIENT CHIDI: No Prescriptions: Amoxicillin/Clavulanate K [Augmentin 500-125 MG] 1 tab PO BID #20 tablet oxyCODONE HCl/Acetaminophen [Percocet 5-325 mg Tablet] 1 - 2 each PO Q4H PRN #15 tablet PRN Reason: pain relief. Instructions: Dental Abscess, [id number] Referrals: Lidia Multani PA-C [Primary Care Provider] - Forms: ED Department Discharge Additional Instructions: Evaluation in the emergency room today in regards to gradually worsening dental pain coming from right second lower bicuspid tooth which is badly decayed down to the root of the tooth below the gingiva margin. Associated infection of the surrounding gums or gingiva as well. Treatment to be Augmentin 500/125 mg tablet twice daily for the next 10 days to clear up dental infection. Continue Motrin 600 mg every 6 hours to relieve pain and inflammation. Percocet tabs 5/325 mg strength 1 tablet every 4-6 hours necessary for pain relief in addition to the Motrin. Follow-up with dentist as planned. Sepsis Event Note (ED) - Evaluation Sepsis Screening Result: No Definite Risk - Focused Exam Vital Signs: Vital Signs Temp Pulse Resp BP Pulse Ox 09/24/20 21:16 36.0 C L 79 16 120/71 100
== END 2020-09-24 21:35 | disposition home or self-care (01) ==
LOC: JD.ED 21:07
DX: K04.7 Periapical abscess without sinus (principal); K02.9 Dental caries, unspecified; I10 Essential (primary) hypertension; J45.909 Unspecified asthma, uncomplicated; E66.9 Obesity, unspecified; Z68.37 Body mass index [BMI] 37.0-37.9, adult; Z72.0 Tobacco use; Z88.1 Allergy status to other antibiotic agents; Z91.048 Other nonmedicinal substance allergy status; Z79.899 Other long term (current) drug therapy
CPT/HCPCS: 99282; 99283

== ENCOUNTER 2020-11-30 07:41 | Emergency (ER) | payer MEDICAID ==
[2020-11-30 07:53] VITALS: BP 136/95; PULSE 102
[2020-11-30] MEDS ORDERED: cefTRIAXone 1 GM, Lidocaine 1% 2.1 ML IM ONE ×2 (07:57)
--- NOTE | 2020-11-30 08:10 | EDM.PDOC ---
ED HPI GENERAL MEDICAL PROBLEM - General Chief Complaint: ENT Problem Stated Complaint: DENTAL COMPLAINT Time Seen by Provider: 11/30/20 07:57 Source of Information: Reports: Patient History Limitations: Reports: No Limitations - History of Present Illness INITIAL COMMENTS - FREE TEXT/NARRATIVE: The patient presents with right lower jaw pain. This started on Monday. She was seen at the walk in clinic on Monday and started on Augmentin. She said the pain was worse today and there is more swelling. She does have known periodontal disease. She goes to [facility] for her dental care. She just lost her brother last week and she is wondering if this is from her grinding her teeth. Onset: Gradual Duration: Day(s): Location: Reports: Other (right lower jaw) Quality: Reports: Sharp Severity: Severe Improves with: Reports: None Worsens with: Reports: None Associated Symptoms: Reports: No Other Symptoms Right Face/Facial Pain Score (Numeric/FACES): 10 - Related Data Allergies Allergy/AdvReac Type Severity Reaction Status Date / Time doxycycline AdvReac Severe Chest Verified 11/30/20 07:53 Presssure [place] Allergy Severe Shortness Uncoded 09/24/20 21:18 of Breath Home Meds: Home Meds LORazepam [Ativan] 0.5 mg PO TID 05/08/19 [History] Acetaminophen [Tylenol Extra Strength] 500 mg PO DAILY PRN 09/24/20 [History] Amoxicillin/Clavulanate K [Augmentin 500-125 MG] 1 tab PO BID #20 tablet 09/24/20 [Rx] oxyCODONE HCl/Acetaminophen [Percocet 5-325 mg Tablet] 1 - 2 each PO Q4H PRN #15 tablet 09/24/20 [Rx] Hydrocodone/Acetaminophen [Hydrocodone-Acetamin 5-325 mg] 1 - 2 each PO Q6H PRN #20 tablet 11/30/20 [Rx] Past Medical History - Past Health History Medical/Surgical History: Denies Medical/Surgical History HEENT History: Reports: Other (See Below) Other HEENT History: Dental Caries, Upper Dentures Cardiovascular History: Reports: Hypertension, Other (See Below) Other Cardiovascular History: Pt reports she has palpitations. Respiratory History: Reports: Asthma Gastrointestinal History: Reports: Other (See Below) Other Gastrointestinal History: Stomach Ulcers Genitourinary History: Reports: None GARAGE HAND History: Reports: , Other (See Below) Other GARAGE HAND History: IUD Musculoskeletal History: Reports: None Neurological History: Reports: Headaches, Chronic Psychiatric History: Reports: Anxiety, Depression Endocrine/Metabolic History: Reports: Obesity/BMI 30+ Hematologic History: Reports: None Immunologic History: Reports: None Oncologic (Cancer) History: Reports: None Dermatologic History: Reports: Eczema, Psoriasis - Infectious Disease History Infectious Disease History: Reports: Chicken Pox - Past Surgical History HEENT Surgical History: Reports: Oral Surgery Social & Family History - Caffeine Use Caffeine Use: Reports: Coffee - Living Situation & Occupation Living situation: Reports: Single, with Family (Parents, 2 kids) Occupation: Unemployed ED ROS ENT - Review of Systems Review Of Systems: See Below Constitutional: Reports: No Symptoms HEENT: Reports: Dental Pain Respiratory: Reports: No Symptoms Cardiovascular: Reports: No Symptoms Endocrine: Reports: No Symptoms GI/Abdominal: Reports: No Symptoms : Reports: No Symptoms Musculoskeletal: Reports: No Symptoms ED EXAM, ENT - Physical Exam Exam: See Below Exam Limited By: No Limitations General Appearance: Alert, No Apparent Distress Ears: Normal External Exam Nose: Normal Inspection Mouth/Throat: Other (Erythema and edema to the right lower jaw gum line. Mild edema noted to her right jaw.) Head: Atraumatic, Normocephalic Neck: Normal Inspection, Supple, Non-Tender, Full Range of Motion Respiratory/Chest: No Respiratory Distress Course - Vital Signs Last Recorded V/S: Last Vital Signs Temp 98.2 F 11/30/20 07:50 Pulse 102 H 11/30/20 07:50 Resp 18 11/30/20 07:50 BP 136/95 H 11/30/20 07:50 Pulse Ox 97 11/30/20 07:50 - Orders/Labs/Meds Meds: Medications Discontinued Medications Generic Name Dose Route Start Last Admin Trade Name Freq PRN Reason Stop Dose Admin Ceftriaxone Sodium 1 gm/ 0 gm 11/30/20 07:57 Lidocaine HCl 2.1 ml IM 11/30/20 07:58 ONETIME ONE - Re-Assessments/Exams Free Text/Narrative Re-Assessment/Exam: 11/30/20 08:16 I will give her a shot of rocephin and have he continue the augmentin. I will also give her some hydrocodone for pain and have her follow up with [facility]. Departure - Departure Time of Disposition: 08:20 Disposition: Home, Self-Care 01 Condition: Good Clinical Impression: Pain, dental, Dental infection - Discharge Information *PRESCRIPTION DRUG MONITORING PROGRAM REVIEWED*: Not Applicable *COPY OF PRESCRIPTION DRUG MONITORING REPORT IN PATIENT CHIDI: Not Applicable Prescriptions: Hydrocodone/Acetaminophen [Hydrocodone-Acetamin 5-325 mg] 1 - 2 each PO Q6H PRN #20 tablet PRN Reason: Pain Referrals: Lidia Multani PA-C [Primary Care Provider] - 1 Week Forms: ED Department Discharge Additional Instructions: Keep taking he augmentin as prescribed. Put warm compresses on your jaw for 15 minutes 3 times per day for 3 to 5 days. Take tylenol or motrin as needed for pain. If that does not help, try the hydrocodone. Follow up with your dentist. Please return if you are worse. Sepsis Event Note (ED) - Evaluation Sepsis Screening Result: No Definite Risk - Focused Exam Vital Signs: Vital Signs Temp Pulse Resp BP Pulse Ox 11/30/20 07:50 98.2 F 102 H 18 136/95 H 97
== END 2020-11-30 08:35 | disposition home or self-care (01) ==
LOC: JD.ED 07:41
DX: K04.7 Periapical abscess without sinus (principal); I10 Essential (primary) hypertension; J45.909 Unspecified asthma, uncomplicated; E66.9 Obesity, unspecified; Z68.30 Body mass index [BMI] 30.0-30.9, adult; Z88.1 Allergy status to other antibiotic agents; Z91.09 Other allergy status, other than to drugs and biological substances
CPT/HCPCS: 96372; 99282; J0696

== ENCOUNTER 2020-12-24 18:46 | Emergency (ER) | payer MEDICAID ==
--- NOTE | 2020-12-24 19:34 | EDM.PDOC ---
ED HPI GENERAL MEDICAL PROBLEM - General Chief Complaint: General Stated Complaint: LEFT SIDE OF FACE SWOLLEN/LEFT LEG PAIN Time Seen by Provider: 12/24/20 18:57 Source of Information: Reports: Patient History Limitations: Reports: No Limitations - History of Present Illness INITIAL COMMENTS - FREE TEXT/NARRATIVE: Ms. Summers is a pleasant 30-year-old woman who now presents to the ED stating that she has had left upper and lower extremity fatigue/heaviness, tingling and numbness for about 2 years, intermittent left eye blurriness for about 1.5 years, left lower extremity pain for about 2 weeks, and left facial swelling, without dental pain, for about 1 week. The patient states that she saw her PCP about a year ago for her left upper and left lower extremity symptoms, and was told that her symptoms might be because of the way she carries herself. She saw an Valve Inserter on 03/08/2020, and was told that she had increased pressure in her left eye, but that she does not have glaucoma. She states that she was instructed to follow-up with her PCP for further evaluation. With respect to the patient's left lower extremity discomfort, she states that she has not taken any [id number] or home remedies to address her symptoms. Here in the ED tonight, the patient is found to be hemodynamically stable, afebrile, saturating 98% on room air. She appears to be comfortable, in no acute distress. Other than the above symptoms, the patient denies having a recent fever, chills, sore throat, ear pain, nasal or sinus congestion, cough, dyspnea, chest pain, palpitations, nausea, vomiting, constipation, diarrhea, abdominal pain, urinary symptoms, recent weight gain or weight loss, recent bloody bowel movements or black bowel movements, recent joint aches, headaches, or rashes. The patient's PCP is SUSHANT Craven. She has not received a COVID vaccination. Left Leg Pain Score (Numeric/FACES): 4 - Related Data Allergies Allergy/AdvReac Type Severity Reaction Status Date / Time doxycycline AdvReac Severe Chest Verified 12/24/20 19:10 Presssure [place] Allergy Severe Shortness Uncoded 12/24/20 19:10 of Breath Home Meds: Home Meds LORazepam [Ativan] 0.5 mg PO TID 05/08/19 [History] Acetaminophen [Tylenol Extra Strength] 500 mg PO DAILY PRN 09/24/20 [History] Amoxicillin/Clavulanate K [Augmentin 500-125 MG] 1 tab PO BID #20 tablet 09/24/20 [Rx] oxyCODONE HCl/Acetaminophen [Percocet 5-325 mg Tablet] 1 - 2 each PO Q4H PRN #15 tablet 09/24/20 [Rx] Hydrocodone/Acetaminophen [Hydrocodone-Acetamin 5-325 mg] 1 - 2 each PO Q6H PRN #20 tablet 11/30/20 [Rx] Past Medical History HEENT History: Reports: Other (See Below) (Upper dentures) Psychiatric History: Reports: Anxiety (untreated), Depression (untreated), Panic Attack Endocrine/Metabolic History: Reports: Obesity/BMI 30+ - Infectious Disease History Infectious Disease History: Reports: Chicken Pox - Past Surgical History HEENT Surgical History: Reports: Oral Surgery (dental extractions) Social & Family History - Tobacco Use Tobacco Use Status *Q: Current Every Day Tobacco User Years of Tobacco use: 15 Packs/Tins Daily: 1 Packs/Tins Daily Comment: Down from 2 ppd - Caffeine Use Caffeine Use: Reports: Coffee - Alcohol Use Alcohol Use History: Yes Alcohol Use Frequency: Socially - Recreational Drug Use Recreational Drug Use: Yes Drug Use in Last 12 Months: No Recreational Drug Type: Reports: Cocaine (snorted once in 2005), Marijuana/Hashish (last smoked 2015), Methamphetamine (last smoked 2007), Psilocybin (Mushrooms) (last took 2008) - Living Situation & Occupation Living situation: Reports: Single, with Family (2 kids) 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 ED EXAM, GENERAL - Physical Exam Exam: See Below Exam Limited By: No Limitations General Appearance: Alert, WD/WN, No Apparent Distress Eye Exam: Bilateral Eye: EOMI, Normal Inspection Ears: Normal External Exam, Normal Canal, Hearing Grossly Normal, Normal TMs Nose: Normal Inspection, Normal Mucosa, No Blood Throat/Mouth: Normal Inspection, Normal Lips, Normal Teeth, Normal Gums, Normal Oropharynx, Normal Voice, No Airway Compromise Head: Atraumatic, Normocephalic (I do not see any swelling on the left side of the patient's face) Neck: Normal Inspection, Supple, Non-Tender, Full Range of Motion. No: Lymphadenopathy (L), Lymphadenopathy (R) Respiratory/Chest: No Respiratory Distress, Lungs Clear, Normal Breath Sounds, No Accessory Muscle Use Cardiovascular: Normal Peripheral Pulses, Regular Rate, Rhythm, No Edema, No Gallop, No JVD, No Murmur, No Rub Peripheral Pulses: 3+: Radial (L), Radial (R) GI/Abdominal: Normal Bowel Sounds, Soft, Non-Tender, No Organomegaly, No Distention, No Abnormal Bruit, No Mass Back Exam: Normal Inspection, Full Range of Motion, NT Extremities: Normal Inspection, Normal Range of Motion, No Pedal Edema, Normal Capillary Refill Neurological: Alert, Oriented, Normal Cognition, No Motor/Sensory Deficits Psychiatric: Normal Affect Skin Exam: Warm, Dry, Intact, Normal Color, No Rash Course - Vital Signs Last Recorded V/S: Last Vital Signs Temp 37.1 C 12/24/20 19:03 Pulse 95 12/24/20 19:03 Resp 20 12/24/20 19:03 BP 124/78 12/24/20 19:03 Pulse Ox 98 12/24/20 19:03 - Orders/Labs/Meds Orders: Active Orders 24 hr Category Date Time Status CBC WITH MANUAL DIFF [HEME] Stat Lab 12/24/20 19:40 Results Labs: Laboratory Tests 12/24/20 12/24/20 12/24/20 Range/Units 19:40 19:40 19:54 WBC 5.96 (3.98-10.04) K/mm3 RBC 4.46 (3.98-5.22) M/mm3 Hgb 13.4 (11.2-15.7) gm/dl Hct 41.2 (34.1-44.9) % MCV 92.4 (79.4-94.8) fl MCH 30.0 (25.6-32.2) pg MCHC 32.5 (32.2-35.5) g/dl RDW Std Deviation 44.4 (36.4-46.3) fL Plt Count 141 L (182-369) K/mm3 MPV 12.1 (9.4-12.3) fl Sodium 138 (136-145) mEq/L Potassium 3.8 (3.5-5.1) mEq/L Chloride 104 (98-107) mEq/L Carbon Dioxide 25 (21-32) mEq/L Anion Gap 12.8 (5-15) BUN 9 (7-18) mg/dL Creatinine 0.8 (0.55-1.02) mg/dL Est Cr Clr Drug Dosing 90.84 mL/min Estimated GFR (MDRD) > 60 (>60) mL/min BUN/Creatinine Ratio 11.3 L (14-18) Glucose 100 H (70-99) mg/dL Calcium 8.9 (8.5-10.1) mg/dL Total Bilirubin 0.4 (0.2-1.0) mg/dL AST 21 (15-37) U/L ALT 27 (14-59) U/L Alkaline Phosphatase 44 L (46-116) U/L C-Reactive Protein <0.2 (<1.0) mg/dL Total Protein 7.1 (6.4-8.2) g/dl Albumin 3.9 (3.4-5.0) g/dl Globulin 3.2 gm/dL Albumin/Globulin Ratio 1.2 (1-2) SARS-CoV-2 RNA (LANCE) Negative (NEGATIVE) - Re-Assessments/Exams Free Text/Narrative Re-Assessment/Exam: 12/24/20 19:30 I explained to the patient that the ED is equipped to evaluate patients to see if their complaint constitutes a medical emergency, but that we are not equipped to perform diagnostic evaluations to determine the cause of longstanding issues. Since the patient's intermittent left eye blurriness and progressively worsening left upper and lower extremity symptoms have been going on for more than 2 years, and she has already been evaluated by an Valve Inserter and her PCP about them, they cannot possibly constitute a medical emergency. That being said, there is some concern that the patient's symptoms could be due to MS. At discharge, I will recommend that she follow-up with her PCP to arrange for an MRI of her brain. With respect to the patient's left facial swelling, she states that it is more something that she feels than is visible. From my perspective, I do not see any obvious swelling, however, I have ordered some blood work to evaluate for signs of inflammation or infection. I have also ordered a swab for the SARS-CoV-2 virus, since it can present in so many different ways. 12/24/20 21:05 The patient's CBC is remarkable for modest thrombocytopenia of 141,000, and is otherwise unremarkable. Her CMP is unremarkable. Her CRP is undetectably low. Her swab for the SARS-CoV-2 virus is negative. 12/24/20 21:09 Test results discussed with the patient. As above, today's work-up is unremarkable, and does not suggest an underlying infection. I will discharge her home with recommendation that she follow-up with her PCP to discuss the option of undergoing an MRI of her brain to evaluate for MS. Departure - Departure Time of Disposition: 21:10 Disposition: Home, Self-Care 01 Condition: Good Clinical Impression: Neurological symptoms - Discharge Information *PRESCRIPTION DRUG MONITORING PROGRAM REVIEWED*: Not Applicable *COPY OF PRESCRIPTION DRUG MONITORING REPORT IN PATIENT CHIDI: Not Applicable Referrals: Lidia Multani PA-C [Primary Care Provider] - Forms: ED Department Discharge Additional Instructions: You were seen in the emergency room for 2 years of left upper and lower extremity fatigue, heaviness, tingling, and numbness, as well as for 1.5 years of intermittent blurriness of your left eye, for 2 weeks of pain to your left lower extremity, and for 1 week of the sensation of left facial swelling. Work-up in the ER included several blood tests and a swab for the SARS-CoV-2 virus, all of which were unremarkable. There is no sign of an infection or inflammatory process. The constellation of vision changes and unusual neurologic symptoms is always concerning for multiple sclerosis. We recommend that you follow-up with your PCP, SUSHANT Craven, to discuss the option of undergoing an MRI of your brain to look for MS. If any other problems, please do not hesitate to return to the ER. Sepsis Event Note (ED) - Evaluation Sepsis Screening Result: No Definite Risk - Focused Exam Vital Signs: Vital Signs Temp Pulse Resp BP Pulse Ox 12/24/20 19:03 37.1 C 95 20 124/78 98 - My Orders Last 24 Hours: My Active Orders 12/24/20 19:40 CBC WITH MANUAL DIFF [HEME] Stat - Assessment/Plan Last 24 Hours: My Active Orders 12/24/20 19:40 CBC WITH MANUAL DIFF [HEME] Stat
[2020-12-24 21:23] VITALS: BP 110/70; PULSE 81
== END 2020-12-24 21:19 | disposition home or self-care (01) ==
LOC: JD.ED 18:46
DX: R29.90 Unspecified symptoms and signs involving the nervous system (principal); E66.9 Obesity, unspecified; Z68.30 Body mass index [BMI] 30.0-30.9, adult; Z20.822 Contact with and (suspected) exposure to COVID-19; Z88.1 Allergy status to other antibiotic agents; Z91.09 Other allergy status, other than to drugs and biological substances
CPT/HCPCS: 36415; 80053; 85007; 85027; 86140; 99284; U0002

== ENCOUNTER 2021-02-10 20:02 | Emergency (ER) | payer MEDICAID ==
[2021-02-10 20:32] VITALS: BP 113/73; PULSE 96
--- NOTE | 2021-02-10 21:13 | EDM.PDOC ---
ED HPI GENERAL MEDICAL PROBLEM - General Chief Complaint: Respiratory Problem Stated Complaint: NOT FEELING WELL Time Seen by Provider: 02/10/21 20:29 Source of Information: Reports: Patient History Limitations: Reports: No Limitations - History of Present Illness INITIAL COMMENTS - FREE TEXT/NARRATIVE: Ms. Summers is a pleasant 31-year-old woman who now presents to the ED stating that she developed rhinorrhea, anosmia, ageusia, lightheadedness, dyspnea, fatigue, watery diarrhea, chest pain, variable body aches, and a headache around 2.5 weeks ago, then a subjective fever about 2 weeks ago, a nonproductive cough last week, then tingling and numbness to her bilateral upper and lower extremities Monday morning, 02/07/2021, followed by a feeling of facial flushing, hearing her heartbeat in her ears, and left eye swelling this morning. She states that the anosmia and ageusia resolved this past Monday, the fatigue has improved over the past 5 days, the lightheadedness, dyspnea, and variable body aches have become occasional, while the rhinorrhea, chest pain and headache have persisted. She states that the bilateral upper and lower tingling has occurred a few times since Monday. She states that she has been taking acetaminophen, and took 1 week off of work, presuming she had COVID-19, but returned this past 02/08/2021. No medical evaluation since the onset of her symptoms, and she has not been tested for the SARS-CoV-2 virus. The patient also reports that she develops skin lesions which is sometimes drained purulent material, usually in the intergluteal cleft, although also in the proximal thighs, axillae, and antecubital fossas. At triage, the patient was found to be hemodynamically stable, afebrile, saturating 94% on room air. She appears to be comfortable, in no acute distress. The patient denies having a recent sore throat, ear pain, palpitations, nausea, vomiting, constipation, abdominal pain, urinary symptoms, recent weight gain or weight loss, recent bloody bowel movements or black bowel movements, or recent joint aches. The patient's PCP is SUSHANT Craven. She has not received a COVID vaccination, nor an influenza vaccination this season. Treatments BRAILLE TEACHER: Reports: Other (see below) Other Treatments BRAILLE TEACHER: tylenol Headache Pain Score (Numeric/FACES): 2 Throat Pain Score (Numeric/FACES): 4 Chest Pain Score (Numeric/FACES): 5 - Related Data Allergies Allergy/AdvReac Type Severity Reaction Status Date / Time doxycycline AdvReac Severe Chest Verified 12/24/20 19:10 Presssure [place] [employer] Allergy Severe Shortness Uncoded 12/24/20 19:10 of Breath Home Meds: Home Meds LORazepam [Ativan] 0.5 mg PO TID 05/08/19 [History] Acetaminophen [Tylenol Extra Strength] 500 mg PO DAILY PRN 09/24/20 [History] Clindamycin Phosphate [Cleocin T] 1 applic TOP BID #1 bottle 02/10/21 [Rx] Past Medical History HEENT History: Reports: Other (See Below) (Upper dentures) Psychiatric History: Reports: Anxiety, Depression (untreated), Panic Attack Endocrine/Metabolic History: Reports: Obesity/BMI 30+ - Infectious Disease History Infectious Disease History: Reports: Chicken Pox, Novel Coronavirus (presumed late Jan 2021) - Past Surgical History HEENT Surgical History: Reports: Oral Surgery (dental extractions) Social & Family History - Tobacco Use Tobacco Use Status *Q: Current Every Day Tobacco User Years of Tobacco use: 15 Packs/Tins Daily: 1 - Caffeine Use Caffeine Use: Reports: Coffee - Recreational Drug Use Recreational Drug Use: Yes Drug Use in Last 12 Months: No Recreational Drug Type: Reports: Cocaine (snorted x 1 2015), Marijuana/Hashish (last smoked 2015), Methamphetamine (last smoked 2002), Psilocybin (Mushrooms) (last took 2008) - Living Situation & Occupation Living situation: Reports: Single, with Family (2 kids) 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 ED EXAM, GENERAL - Physical Exam Exam: See Below Exam Limited By: No Limitations General Appearance: Alert, WD/WN, No Apparent Distress Eye Exam: Bilateral Eye: EOMI, Normal Inspection, PERRL Ears: Normal External Exam, Normal Canal, Hearing Grossly Normal, Normal TMs Nose: Normal Inspection, Normal Mucosa, No Blood Throat/Mouth: Normal Inspection, Normal Lips, Normal Teeth, Normal Gums, Normal Oropharynx, Normal Voice, No Airway Compromise Head: Atraumatic, Normocephalic, Other (No facial swelling or erythema visible) Neck: Normal Inspection, Supple, Non-Tender, Full Range of Motion Respiratory/Chest: No Respiratory Distress, Lungs Clear, Normal Breath Sounds, No Accessory Muscle Use. No: Decreased Breath Sounds, Crackles, Rhonchi, Wheezing, Prolonged Expiration Cardiovascular: Normal Peripheral Pulses, Regular Rate, Rhythm, No Edema, No Gallop, No JVD, No Murmur, No Rub Peripheral Pulses: 3+: Radial (L), Radial (R) GI/Abdominal: Normal Bowel Sounds, Soft, Non-Tender, No Organomegaly, No Distention, No Abnormal Bruit, No Mass Rectal (Female) Exam: Other (Several small healed-over skin lesions) Back Exam: Normal Inspection, Full Range of Motion, NT Extremities: Normal Range of Motion, No Pedal Edema, Normal Capillary Refill, Other (There is an approximately 1 cm firm subcutaneous nodule to the proximal posterior medial aspect of the patient's left thigh. It is erythematous and tender. No drainage. There is an approximately 0.5 cm diameter erythematous nondraining pustule to the left antecubital fossa, and a similar sized le) Neurological: Alert, Oriented, Normal Cognition, No Motor/Sensory Deficits Psychiatric: Normal Affect Skin Exam: Warm, Dry, Intact, Normal Color, No Rash Course - Vital Signs Last Recorded V/S: Last Vital Signs Temp 36.9 C 02/10/21 20:31 Pulse 96 02/10/21 20:31 Resp 20 02/10/21 20:31 BP 113/73 02/10/21 20:31 Pulse Ox 94 L 02/10/21 20:31 - Orders/Labs/Meds Orders: Active Orders 24 hr Category Date Time Status COVID-19/FLU A+B [[facility]] Stat Lab 02/10/21 20:32 Ordered - Re-Assessments/Exams Free Text/Narrative Re-Assessment/Exam: 02/10/21 21:08 The patient appears to have 3 main issues: 1. Her recurrent boils. The patient likely has hidradenitis suppurativa. I will prescribe topical clindamycin and have the patient follow-up with SUSHANT Craven for referral to a Vp Of Digital Marketing. 2. The constellation of symptoms that began about 2-1/2 weeks ago, many of which have improved and some of which have resolved. She most likely had COVID-19, but at this point, it is too late to test her for it (and she doesn't want to get tested, anyway), as she is well past 10 days, and, even if positive, she would not be a candidate for treatment with monoclonal antibodies. 3. The intermittent bilateral upper and lower extremity tingling and numbness that began Monday morning. This is most likely due to her untreated anxiety. At present, she is taking lorazepam 3 times a day. I advised the patient that if tasha garcia continues taking lorazepam on a regular basis, it is likely that she will develop a dependency. When she sees Ms. Multani, I am recommending that she discuss long-term treatment options for anxiety, including an SSRI with the possible addition of buspirone. Departure - Departure Time of Disposition: 21:13 Disposition: Home, Self-Care 01 Condition: Good Clinical Impression: COVID-19, Hidradenitis suppurativa, Anxiety - Discharge Information *PRESCRIPTION DRUG MONITORING PROGRAM REVIEWED*: Not Applicable *COPY OF PRESCRIPTION DRUG MONITORING REPORT IN PATIENT CHIDI: Not Applicable Prescriptions: Clindamycin Phosphate [Cleocin T] 1 applic TOP BID #1 bottle Instructions: COVID-19 Referrals: Lidia Multani PA-C [Primary Care Provider] - Forms: ED Department Discharge Additional Instructions: You were seen in the emergency room for recurrent boils, a number of symptoms that that began about 2.5 weeks ago, and intermittent upper and lower extremity tingling and numbness that began Monday morning. The recurrent boils are most likely due to a condition called hidradenitis suppurativa. The symptoms that began about 2.5 weeks ago are most likely due to COVID-19, although, as explained, it is too late to test for them now, and even if positive, it is too late to treat with monoclonal antibodies. The intermittent upper and lower extremity tingling and numbness is most likely due to inadequately treated anxiety. A prescription for topical clindamycin has been sent to the [facility] located in the [employer] store. Apply the topical clindamycin to affected areas twice a day, as prescribed. We recommend you stay adequately hydrated and take [id number] ibuprofen as needed for discomfort. We recommend that you follow-up with your PCP, SUSAHNT Craven, in order to be referred to a sheet metal worker, and to also discuss an appropriate long-term treatment for anxiety, such as an SSRI with or without buspirone. If any other problems, please do not hesitate to return to the ER. Sepsis Event Note (ED) - Focused Exam Vital Signs: Vital Signs Temp Pulse Resp BP Pulse Ox 02/10/21 20:31 36.9 C 96 20 113/73 94 L - My Orders Last 24 Hours: My Active Orders 02/10/21 20:32 COVID-19/FLU A+B [[facility]LEC] Stat - Assessment/Plan Last 24 Hours: My Active Orders 02/10/21 20:32 COVID-19/FLU A+B [[facility]LE[facility]] Stat
== END 2021-02-10 21:33 | disposition home or self-care (01) ==
LOC: JD.ED 20:02
DX: U07.1 COVID-19 (principal); L73.2 Hidradenitis suppurativa; F41.9 Anxiety disorder, unspecified; E66.9 Obesity, unspecified; Z72.0 Tobacco use; Z88.1 Allergy status to other antibiotic agents; Z91.048 Other nonmedicinal substance allergy status
CPT/HCPCS: 99283

== ENCOUNTER 2021-03-27 17:14 | Emergency (ER) | payer MEDICAID ==
[2021-03-27 17:44] VITALS: BP 144/85; PULSE 94
== END 2021-03-27 18:20 | disposition home or self-care (01) ==
LOC: JD.ED 17:14
DX: K05.212 Aggressive periodontitis, localized, moderate (principal); E66.9 Obesity, unspecified; Z68.34 Body mass index [BMI] 34.0-34.9, adult; Z88.1 Allergy status to other antibiotic agents; Z91.048 Other nonmedicinal substance allergy status; Z72.0 Tobacco use
CPT/HCPCS: 99283

== ENCOUNTER 2021-03-30 12:36 | Emergency (ER) | payer MEDICAID ==
[2021-03-30 14:05] VITALS: BP 121/71; PULSE 79
== END 2021-03-30 17:30 | disposition home or self-care (01) ==
LOC: JD.ED 12:36
DX: J06.9 Acute upper respiratory infection, unspecified (principal); F41.9 Anxiety disorder, unspecified; E66.9 Obesity, unspecified; Z68.32 Body mass index [BMI] 32.0-32.9, adult; Z88.1 Allergy status to other antibiotic agents; Z91.048 Other nonmedicinal substance allergy status; Z72.0 Tobacco use; Z20.822 Contact with and (suspected) exposure to COVID-19
CPT/HCPCS: 71045; 71045-26; 87804; 99283-25; U0002

== ENCOUNTER 2022-07-19 13:27 | Emergency (ER) | payer MEDICAID ==
[2022-07-19 13:52] VITALS: BP 115/61; PULSE 67
[2022-07-19] MEDS ORDERED: Famotidine 20 MG Tab PO ONE (14:31)
[2022-07-19] MEDS ORDERED: Loratadine 10 MG Tab PO ONE (14:31)
== END 2022-07-19 16:51 | disposition home or self-care (01) ==
LOC: JD.ED 13:27
DX: J30.9 Allergic rhinitis, unspecified (principal); I10 Essential (primary) hypertension; E66.9 Obesity, unspecified; F17.210 Nicotine dependence, cigarettes, uncomplicated; Z68.31 Body mass index [BMI] 31.0-31.9, adult; Z86.16 Personal history of COVID-19; Z79.899 Other long term (current) drug therapy; Z88.1 Allergy status to other antibiotic agents; Z91.048 Other nonmedicinal substance allergy status
CPT/HCPCS: 87651; 99283; A9270; 99284

== ENCOUNTER 2022-10-17 11:11 | Emergency (ER) | payer SELFPAY ==
[2022-10-17] MEDS ORDERED: Sodium Chloride 0.9% 10 ML Syringe FLUSH PRN (11:26)
[2022-10-17] MEDS ORDERED: Aluminum Hydroxide/Magnesium Hydroxide/Simethicone Susp 30 ML Cup PO ONE (11:43)
[2022-10-17] MEDS ORDERED: Pantoprazole 40 MG Vial IVPUSH ONE (11:43)
[2022-10-17 12:07] LABS: BASOPHILS ABSOLUTE AUTO 0.03 K/mm3 (0.01-0.08); BASOPHILS PERCENT AUTO 0.5 % (0.1-1.2); EOSINOPHILS ABSOLUTE AUTO 0.14 K/mm3 (0.04-0.36); EOSINOPHILS PERCENT AUTO 2.6 (0.7-5.8); HEMATOCRIT 39.6 % (34.1-44.9); HEMOGLOBIN 13.1 gm/dl (11.2-15.7); IMMATURE GRAN ABSOLUTE AUTO 0.02 K/mm3 (0.00-0.10); IMMATURE GRAN PERCENT AUTO 0.4 % (<=1.0); LYMPHOCYTES ABSOLUTE AUTO 1.35 K/mm3 (1.18-3.74); LYMPHOCYTES PERCENT AUTO 24.6 % (19.3-51.7); MEAN CORPUSCULAR HEMOGLOBIN 30.8 pg (25.6-32.2); MEAN CORPUSCULAR HGB CONC 33.1 g/dl (32.2-35.5); MONOCYTES ABSOLUTE AUTO 0.42 K/mm3 (0.24-0.36); MONOCYTES PERCENT AUTO 7.7 % (4.7-12.5); NEUTROPHILS ABSOLUTE AUTO 3.53 K/mm3 (1.56-6.13); NEUTROPHILS PERCENT AUTO 64.2 % (34.0-71.1); PLATELET COUNT,PLT 136 K/mm3 (182-369); RED BLOOD CELL COUNT 4.26 M/mm3 (3.98-5.22); WHITE BLOOD CELL COUNT,WBC 5.49 K/mm3 (3.98-10.04)
[2022-10-17 12:26] LABS: A/G RATIO 1.2 (1-2); ALANINE AMINOTRANSFERASE,ALT 24 U/L (14-59); ALBUMIN 3.9 g/dl (3.4-5.0); ALKALINE PHOSPHATASE 43 U/L (46-116); ANION GAP 11.1 (5-15); ASPARTATE AMNIOTRANSFERASE,AST 15 U/L (15-37); BILIRUBIN TOTAL 0.6 mg/dL (0.2-1.0); BLOOD UREA NITROGEN,BUN 12 mg/dL (7-18); CALCIUM 9.3 mg/dL (8.5-10.1); CARBON DIOXIDE,CO2 27 mEq/L (21-32); CHLORIDE,CL 104 mEq/L (98-107); CREATININE 0.8 mg/dL (0.55-1.02); EST CRCL DRUG DOSING (CG) 89.16 mL/min; ESTIMATED GFR 99 mL/min (>60); GLUCOSE RANDOM 103 mg/dL (70-99); MAGNESIUM 1.8 mg/dL (1.8-2.4); POTASSIUM,K 4.1 mEq/L (3.5-5.1); PROTEIN TOTAL,TP 7.3 g/dl (6.4-8.2); SODIUM,NA 138 mEq/L (136-145)
[2022-10-17 12:30] LABS: TROPONIN I HIGH SENSITIVITY < 4 pg/mL (<=51)
[2022-10-17 13:33] VITALS: BP 96/63; PULSE 67
== END 2022-10-17 13:14 | disposition home or self-care (01) ==
LOC: JD.ED 11:11
DX: R12 Heartburn (principal); R00.2 Palpitations; J45.909 Unspecified asthma, uncomplicated; E66.9 Obesity, unspecified; Z68.34 Body mass index [BMI] 34.0-34.9, adult; Z88.1 Allergy status to other antibiotic agents; Z91.048 Other nonmedicinal substance allergy status; Z86.16 Personal history of COVID-19
CPT/HCPCS: 36415; 71045; 80053; 82977; 83735; 84484; 85025; 93005; 93246; 96374; 99285; A9270; C9113; J3490; 93010; 99284

== ENCOUNTER 2023-11-20 17:36 | Emergency (ER) | payer BC, OTHER ==
[2023-11-20 18:41] VITALS: BP 125/69; PULSE 77
== END 2023-11-20 20:32 | disposition home or self-care (01) ==
LOC: JD.ED 17:36
DX: L02.211 Cutaneous abscess of abdominal wall (principal); J45.909 Unspecified asthma, uncomplicated; K21.9 Gastro-esophageal reflux disease without esophagitis; E66.9 Obesity, unspecified; Z86.16 Personal history of COVID-19; Z79.899 Other long term (current) drug therapy; Z88.1 Allergy status to other antibiotic agents; Z91.048 Other nonmedicinal substance allergy status; Z68.41 Body mass index [BMI] 40.0-44.9, adult
CPT/HCPCS: 99282; 99283